=== PATIENT | male | born 1940 | race Caucasian/White ===

== ENCOUNTER 2023-08-06 08:58 | Outpatient (OUT) | payer MEDICARE, BC, SELFPAY ==
--- NOTE | 2023-08-06 | XR_ITS ---
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 FINDINGS: SPINE ANALYSIS: Average bone mineral density is 1.300 g/cm2. T-score (standard deviation relative to young adult mean): 0.7 . +18.7% change since prior study. HIP ANALYSIS: Lowest bone mineral density is within the right femoral neck, 0.733 g/cm2. T-score (standard deviation relative to young adult mean): -2.6 . +6.7% change since prior study. XR/XR DEXA axial skeleton IMPRESSION: [employer] Classification: Osteoporosis - High Fracture Risk FRAX: Cannot be calculated. Electronically authenticated by: JACKIE JOHANSEN Date: 08/06/2023 09:44
== END 2023-08-06 08:59 | disposition home or self-care (01) ==
LOC: RAD 09:05
PROVIDERS: PCP Internal Medicine; Visit Provider Family Medicine
DX: M81.0 Age-related osteoporosis without current pathological fracture (principal)
CPT/HCPCS: 77080

== ENCOUNTER 2023-08-20 12:51 | Outpatient (OUT) | payer MEDICARE, BC, SELFPAY ==
--- NOTE | 2023-08-20 | XR_ITS ---
[facility] [place] [id number] Patient Name: TE QUINN MRN: [id number] date: 1940 Sex: M Assigned Patient Location: RAD Current Patient Location: RAD Accession/Order Number: [id number] Exam Date: 08/20/2023 13:14 Report Date: 08/21/2023 12:01 At the request of: KIMBERLY MIRANDA Procedure: XR hip RT 2V w/ pelvis PROCEDURE: XR hip RT 2V w/ pelvis HISTORY: Low back pain, pain of right hip , right leg pain for 2 1/2 months COMPARISON: None. FINDINGS: BONES:1.6 x 0.6 cm calcification lateral to the greater trochanter of the right femur. Mild degenerative osteoarthritic spurring along superior rim of acetabulum. Minimal joint space narrowing. Unremarkable femoral head. SOFT TISSUES:No visible soft tissue swelling. EFFUSION:None visible. OTHER: Negative. XR/XR hip RT 2V w/ pelvis IMPRESSION: 1. 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 2. Separate ossification anterior-lateral to the greater trochanter; nonspecific but suggestive of heterotopic bone formation or avulsion fracture from remote injury. No comparison studies. Electronically authenticated by: JACKIE JOHANSEN Date: 08/21/2023 12:01
--- NOTE | 2023-08-20 | XR_ITS ---
[facility] [place] [address] Patient Name: TE QUINN MRN: [id number] date: 1940 Sex: M Assigned Patient Location: [facility] Current Patient Location: Accession/Order Number: [id number] Exam Date: 08/20/2023 13:14 Report Date: 08/21/2023 11:51 At the request of: KIMBERLY MIRANDA Procedure: XR lumbar spine 6V w bending EXAMINATION: XR lumbar spine 6V w bending HISTORY: Low back pain, pain of right hip COMPARISON: No relevant comparison available. FINDINGS: BONES: 5 mm retrolisthesis of L4 on L5; stable between neutral, flexion, extension. 7 mm anterior listhesis of L5 on S1; stable between neutral, flexion, extension. L5 pars interarticularis defects suspected bilaterally. Moderate degenerative facet arthropathy L4-5, L5-S1. Slight right convex curvature of lumbar spine. DISC SPACES: Moderate narrowing L5-S1. PARASPINOUS: Atherosclerotic disease of aorta and branches without appreciable aneurysm. OTHER: Negative. XR/XR lumbar spine 6V w bending IMPRESSION: 1. Degenerative facet arthropathy, degenerative disc disease, and listhesis of lower lumbar spine as detailed above. Electronically authenticated by: JACKIE JOHANSEN Date: 08/21/2023 11:51
--- OUTSIDE RECORDS SUMMARY | 2023-08-20 13:09 | XMS_ITS | CCD ---
Author Organization [facility] Care Team Providers Care Pricing Consultant Name Role Phone TIP, DR HARRIS Admitting Unavailable BALL, DR HARRIS Attending Unavailable BALL, DR HARRIS Consulting Unavailable BALL, DR HARRIS Primary Care Unavailable Ziebjen, DR Hull Consulting Unavailable TIP, DR HARRIS Primary Care Unavailable TIP, DR HARRIS Admitting Unavailable TIP, DR HARRIS Attending Unavailable BALL, DR HARRIS Consulting Unavailable Brian, Epifanio Consulting Unavailable ROBERTO, SANYA JORDAN Admitting Unavailable BALL, DR HARRIS Primary Care Unavailable ROBERTO, SANYA JORDAN Attending Unavailable ROBERTO, SANYA JORDAN Consulting Unavailable LESA, DR SASHA Koenig Admitting Unavailable TIP, DR HARRIS Primary Care Unavailable LESA, DR SASHA Koenig Attending Unavailable LESA, DR SASHA Koenig Consulting Unavailable HAY, DR SWAIN Consulting Unavailable FELICIANO, EMELIA Consulting Unavailable BALL, DR HARRIS Admitting Unavailable BALL, DR HARRIS Primary Care Unavailable TIP, DR HARRIS Attending Unavailable BALL, DR HARRIS Consulting Unavailable BALL, DR HARRIS Primary Care Unavailable BALL, DR HARRIS Admitting Unavailable BALL, DR HARRIS Attending Unavailable BALL, DR HARRIS Consulting Unavailable Tip, Micah Unavailable FREDERICK ZAMORA Attending Unavailable Allergies Allergy Classification Reported Allergen(s) Allergy Type Date of Onset Reaction(s) Facility (1 source) Penicillins Drug allergy (disorder) 3 [facility] Repository (4 sources) Vicodin *ANALGESICS - OPIOID* Propensity to adverse reactions Unknown [email or web address] Other (4 sources) Substance with penicillin structure and antibacterial mechanism of action (substance) Drug allergy Unknown [email or web address] Other Medications Current Medications Medication Drug Class(es) Dates Sig (Normalized) Sig (Original) amLODIPine 5 mg oral tablet (4 sources) Dihydropyridine Calcium Channel Reyes Start: 08-07-2022 take 1 tablet by mouth every twenty-four hours amLODIPine Besylate 5 MG 1 tablet Orally Once a day Aug, Active atorvastatin 40 mg oral tablet (6 sources) HMG-CoA Reductase Inhibitor Start: 06-10-2022 take 1 tablet by mouth every twenty-four hours Atorvastatin Calcium 40 MG 1 tablet Orally Once a day Jun, Active Cholecalciferol (4 sources) Vitamin D Start: 08-07-2022 Cholecalciferol 75 MCG (3000 UT) as directed Orally Once a day Aug, Active pantoprazole 40 mg delayed release oral tablet (6 sources) Proton Pump Inhibitor Start: 08-07-2022 take 1 tablet by mouth every twenty-four hours Pantoprazole Sodium 40 MG 1 tablet Orally Once a day Aug, Active Start: 06-10-2022 take 1 tablet by jone th every twenty-four hours Pantoprazole Sodium 40 MG 1 tablet Orally Once a day for 90 days Jun, Active {20 (nirmatrelvir 150 MG Oral Tablet) / 10 (ritonavir 100 MG Oral Tablet) } Pack [Paxlovid 5-Day] (4 sources) Start: 03-11-2022 take 3 tablets by mouth every twelve hours Paxlovid (300/100) 20 x 150 MG & 10 x 100MG 3 tablets Orally Twice a day for 5 day(s) Mar, Active Completed/Discontinued Medications Medication Drug Class(es) Dates Sig (Normalized) Sig (Original) Suprep Bowel Prep . (8 sources) Start: 08-31-2014 Suprep Bowel Prep . as directed Orally 1 for 1 days Aug, Not-Taking/PRN Start: 08-31-2014 Suprep Bowel P rep . as directed Orally 1 for 1 days Aug, Not-Taking Start: 08-31-2014 Suprep Bowel P rep . as directed Orally 1 for 1 days Aug, Active triamcinolone acetonide 40 mg/ml injectable suspension (17 sources) Corticosteroid Start: 03-08-2022 Kenalog-40 Jun, 60 mg Problems Active Problems Problem Classification Problem Date Documented Da te Episodic/Chronic Abdominal pain (8 sources) Epigastric pain; Translations: [Abdominal pain] Onset: 01-13-2021 Episodic Cancer of colon (12 sources) History of malignant neoplasm of colon; Translations: [Personal history of other malignant neoplasm of large intestine] Episodic Chronic obstructive pulmonary disease and bronchiectasis (1 source) Bronchitis, not specified as acute or chronic Episodic Disorders of lipid metabolism (20 sources) Pure hypercholesterolemia , unspecified; Translations: [Hypercholesterolemi a] Onset: 01-15-2021 Chronic Esophageal disorders (2 sources) Gastro-esophageal reflux disease with esophagitis; Translations: [Gastro-esophageal reflux disease with esophagitis, without bleeding] Chronic Essential hypertension (16 sources) Essential (primary) hypertension; Translations: [Essential hypertension] Onset: 01-15-2021 Chronic Gout and other crystal arthropathies (12 sources) Primary gout; 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, left ankle and foot] Onset: 10-31-2014 Resolved: 02-04-2022 Chronic Hyperplasia of prostate (4 sources) Lower urinary tract symptoms due to benign prostatic hypertrophy; Translations: [Benign prostatic hyperplasia with lower urinary tract symptoms] Chronic Neoplasms of unspecified nature or uncertain behavior (4 sources) Neoplasm of uncertain behavior of colon; Translations: [Neoplasm of uncertain behavior of colon] Episodic Nutritional deficiencies (4 sources) Vitamin D deficiency; Translations: [Vitamin D deficiency, unspecified] Chronic Osteoporosis (4 sources) Primary osteoporosis; Translations: [Age-related osteoporosis without current pathological fracture] Chronic Other and unspecified benign neoplasm (8 sources) History of polyp of colon; Translations: [Personal history of colonic polyps] Episodic Other and unspecified benign neoplasm (8 sources) Benign neoplasm of transverse colon; Translations: [Benign neoplasm of transverse colon] Episodic Other connective tissue disease (4 sources) Other symptoms and signs involving the nervous system; Translations: [Other symptoms and signs involving the nervous system] Episodic Other connective tissue disease (2 sources) Disorder of nervous system; Translations: [Other symptoms and signs involving the nervous system] Episodic Other injuries and conditions due to external causes (3 sources) History of fall; Translations: [History of falling] Episodic Other injuries and conditions due to external causes (1 source) History of falling; Translations: [History of falling] Episodic Other non-traumatic joint disorders (4 sources) Pain in left knee; Translations: [PAIN IN LEFT KNEE] Onset: 10-25-2021 Episodic Other nutritional; endocrine; and metabolic disorders (4 sources) Obesity; Translations: [Obesity, unspecified] Chronic Other nutritional; endocrine; and metabolic disorders (4 sources) Simple obesity ; Translations: [Other obesity due to excess calories] Onset: 10-31-2014 Chronic Other nutritional; endocrine; and metabolic disorders (1 source) Body mass index 30+ - obesity; Translations: [Body mass index (BMI) 30.0-30.9, adult] Chronic Other nutritional; endocrine; and metabolic disorders (1 source) Other obesity due to excess calories Chronic Other nutritional; endocrine; and metabolic disorders (1 source) Body mass index (BMI) 30.0-30.9, adult Chronic Other nutritional; endocrine; and metabolic disorders (3 sources) Overweight; Translations: [Overweight] Episodic Other nutritional; endocrine; and metabolic disorders (1 source) Overweight; Translations: [Overweight] Episodic Other screening for suspected conditions (not mental disorders or infectious disease) (1 source) Encounter for screening for malignant neoplasm of prostate Episodic Other upper respiratory disease (8 sources) Seasonal allergy; Translations: [Other seasonal allergic rhinitis] Chronic Other upper respiratory disease (2 sources) Other seasonal allergic rhinitis; Translations: [Other seasonal allergic rhinitis] Onset: [birth year]03-1959 Chronic Other upper respiratory disease (9 sources) Allergic rhinitis due to pollen; Translations: [Allergic rhinitis due to pollen] Resolved: 02-04-2022 Chronic Other upper respiratory disease (1 source) Allergic rhinitis due to pollen Chronic Other upper respiratory disease (8 sources) Allergic rhinitis; Translations: [Allergic rhinitis, unspecified] Chronic Other upper respiratory disease (3 sources) Seasonal allergic rhinitis; Translations: [Other seasonal allergic rhinitis] Onset: 03-03-1959 Chronic Other upper respiratory disease (1 source) Allergic rhinitis, unspecified Chronic Peripheral and visceral atherosclerosis (4 sources) Peripheral vascular disease; Translations: [Peripheral vascular disease, unspecified] Chronic Residual codes; unclassified (4 sources) Obstructive sleep apnea (adult) (pediatric); Translations: [OBSTRUCTIVE SLEEP APNEA] Onset: 10-31-2021 Chronic Residual codes; unclassified (4 sources) Obstructive sleep apnea syndrome; Translations: [Obstructive sleep apnea (adult) (pediatric)] Chronic Residual codes; unclassified (8 sources) H/O: major abdominal surgery; Translations: [Other specified postprocedural states] Episodic Past or Other Problems Problem Classification Problem Date Documented Da te Episodic/Chronic Acute bronchitis (4 sources) Acute bronchitis; Translations: [Acute bronchitis, unspecified] Onset: 08-09-2013 Episodic Allergic reactions (4 sources) Contact dermatitis; Translations: [Unspecified contact dermatitis, unspecified cause] Onset: 05-07-2013 Episodic Conditions associated with dizziness or vertigo (4 sources) Dizziness and giddiness; Translations: [Dizziness and giddiness] Onset: 10-24-2016 Episodic Diabetes mellitus without complication (6 sources) Impaired fasting glycemia; Translations: [Impaired fasting glucose] Onset: 02-04-2022 Episodic Esophageal disorders (4 sources) Esophageal disorders; Translations: [Gastro-esophageal reflux disease with esophagitis, without bleeding] Immunizations and screening for infectious disease (8 sources) Encounter for immunization; Translations: [Vaccination given] Onset: 12-02-2013 Episodic Inflammatory conditions of male genital organs (4 sources) Orchitis and epididymitis; Translations: [Epididymo-orchitis ] Resolved: 10-05-2019 Episodic Mycoses (4 sources) Tinea cruris; Translations: [Tinea cruris] Onset: 09-28-2018 Episodic Other aftercare (1 source) [facility] (current) use of aspirin; Translations: [DETENTION CURRENT USE OF ASPIRIN] Onset: 01-15-2021 Episodic Other aftercare (1 source) Other skilled nursing (current) drug therapy; Translations: [OTH SALES REPRESENTATIVE CASH REGISTERS CURRENT DRUG THERAPY] Onset: 01-15-2021 Episodic Other connective tissue disease (3 sources) Disorder of soft tissue; Translations: [Other specified soft tissue disorders] Onset: 08-23-2013 Episodic Other connective tissue disease (1 source) Other specified soft tissue disorders; Translations: [Other specified soft tissue disorders] Onset: 08-23-2013 Episodic Other lower respiratory disease (3 sources) Dyspnea; Translations: [Other forms of dyspnea] Onset: 10-24-2016 Episodic Other lower respiratory disease (1 source) Other forms of dyspnea; Translations: [Other forms of dyspnea] Onset: 10-24-2016 Episodic Other nervous system disorders (1 source) Paresthesia of skin; Translations: [PARESTHESIA OF SKIN] Onset: 01-15-2021 Episodic Other non-traumatic joint disorders (4 sources) Arthralgia of the lower leg; Translations: [Pain in left knee] Resolved: 02-04-2022 Episodic Other skin disorders (4 sources) Actinic keratosis; Translations: [Actinic keratosis] Onset: 07-10-2016 Episodic Residual codes; unclassified (3 sources) H/O: risk factor; Translations: [Other specified personal history presenting hazards to health] Onset: 10-24-2016 Episodic Residual codes; unclassified (1 source) Other specified personal history presenting hazards to health; Translations: [Other specified personal history presenting hazards to health] Onset: 10-24-2016 Episodic Screening and history of mental health and substance abuse codes (1 source) Encounter for screening for depression; Translations: [Encounter for screening for depression] Onset: 10-03-2021 Episodic Sprains and strains (4 sources) Low back strain; Translations: [Strain of muscle, fascia and tendon of lower back, initial encounter] Onset: 09-28-2018 Episodic Superficial injury; contusion (12 sources) Contusion of lower back and pelvis, initial encounter; Translations: [Contusion of lower back] Onset: 02-07-2021 Resolved: 02-04-2022 Episodic Viral infection (1 source) COVID-19 Results Test Name Value Interpretation Reference Range Facil ity XR KNEE LT 3Von 10-25-2021 XR KNEE LT 3V EXAM: Left knee HISTORY: Left knee pain COMPARISON: None. TECHNIQUE: 3 views FINDINGS: No fracture or dislocation of the left knee is noted. Joint spaces well-maintained. Surrounding soft tissues are unremarkable. Vascular calcifications are noted in the soft tissues posteriorly. IMPRESSION: No acute bony antimony of the left knee. Electronically authenticated by: EPIFANIO KINSEY Date: 2021-10-25 14:57 Normal [facility] XR LSPINE 2_3 VIEWSon 2020 XR LSPINE 2_3 VIEWS EXAMINATION: XR LSPINE 2_3 VIEWS HISTORY: Contusion of lower back ; acute lumbar pain after falling COMPARISON: No relevant comparison available. FINDINGS: BONES: Mild grade 1 anterior listhesis of L5 in relation to L4 and S1. Moderate degenerative facet arthropathy L4-5. No fracture. DISC SPACES: Mild narrowing L5-S1. PARASPINOUS: Atherosclerotic disease of aorta without visible aneurysm. OTHER: Negative. IMPRESSION: 1. Mild-moderate degenerative changes of the lower lumbar spine. No appreciable acute abnormality. Electronically authenticated by: JACKIE JOHANSEN Date: 2021-02-07 12:13 Normal [facility] Kevin 01-30-2021 L - -------- Specimen: [id number] Received: 01/30/21 Status: MILTON Mike Num: [id number] Spec Type: Surgical Subm Dr: Rich Saavedra MD Tissues: A Colon - Polyp (RECTUM) Procedures: HE Stain/4, Gross/Micro L4 -------- Patient Age/Sex Location Account Attending Physician -------- Junito Hale 80/M [id number] Rcih Saavedra MD -------- SPEC NUM: [id number] RECD: 01/30/21 STATUS: MILTON MIKE NUM: [id number] REBECCA: 01/30/21- [facility] DR: Rich Saavedra MD ENTERED: 01/30/21 FLORENCIO PENNINGTON: SPEC TYPE: Surgical DEPT: S ORDERED: HE Stain/4, Gross/Micro L4 ORDERED: HE Stain/4, Gross/Micro L4 Pathological Diagnosis Rectal polyp, polypectomy: - Minute fragment of colonic mucosa with lymphoid aggregate, no dysplasia identified. Clinical Information History of colon cancer Gross Description Received in formalin labeled with the patient's name, number and polyp is a possible 0.4 cm thompson to pink tissue fragment admixed with a marked amount of yellow brown vegetable material. Entirely submitted in two cassettes labeled A1-A2. Type of Fixative: 10% Neutral Buffered Formalin (LANETTE/ARIANNA) Microscopic Description Four glass slides with H E stained material have been examined. The microscopic findings support the above pathologic diagnosis. CPT Codes 43913 -------- -------- Specimen: [id number] Received: 01/30/21 Status: MILTON Mckeon Num: [id number] Spec Type: Surgical Subm Dr: Rich Saavedra MD Tissues: A Colon - Polyp (RECTUM) Procedures: HE Stain/4, Gross/Micro L4 -------- Patient: AlexiaJunito Dereck [id number] (Continued) -------- Signed (signature on file) Ria Barahona MD 01/31/21 1317 [facility] COVID-19 Antigenon COVID-19 Antigen Healthcare Worker?: N Will Reference Will Reference Negative SARS-CoV+SARS-CoV-2 (COVID-19) Ag [Presence] in Respiratory specimen by Rapid immunoassay Negative for SARS Antigen by JOANNA COVID19 Blank Space Will Disclaimer Negative results, from patients with symptom Will Disclaimer onset beyond five days, should be treated as Will Disclaimer presumptive and confirmation with a molecular Will Disclaimer assay, if necessary, for patient management, Will Disclaimer may be performed. Negative results do not rule Will Disclaimer out COVID-19 and should not be used as the sole Will Disclaimer basis for treatment or patient management Will Disclaimer decisions, including infection control decisions. Will Disclaimer Negative results should be considered in the Will Disclaimer context of a patient's recent exposures, history Will Disclaimer and the presence of clinical signs and symptoms Will Disclaimer consistent with COVID-19. COVID19 Blank Space Will Disclaimer The Will SARS Antigen JOANNA does not differentiate Will Disclaimer between SARS-CoV and SARS-CoV-2. COVID19 Blank Space Will Disclaimer This test was developed and its performance Will Disclaimer characteristic determined by [employer] and Will Disclaimer validated at [facility]. This Will Disclaimer test has not been FDA cleared or approved. This Will Disclaimer test has been authorized by FDA under an Emergency Use Will Disclaimer Authorization (EUA). This test has been validated Will Disclaimer in accordance with the FDA's Guidance Document (Policy Will Disclaimer for Diagnostics Testing in Laboratories Certified to Will Disclaimer Perform High Complexity Testing under CLIA prior to Will Disclaimer Emergency Use Authorization for Coronavirus Will Disclaimer iseas during the Public Health Emergency) Will Disclaimer issued on June 03, 2019. This test is only authorized Will Disclaimer for the duration of time the declaration that Will Disclaimer circumstances exist justifying the authorization of Will Disclaimer the emergency use of in vitro diagnostic tests for Will Disclaimer detection of SARS-CoV-2 virus and/or diagnosis of Will Disclaimer COVID-19 infection under section 564(b)(1) of the Will Disclaimer Act, 21 U.S.C. 360bbb-3(b)(1), unless the Will Disclaimer authorization is terminated or revoked sooner. PERFORMED BY: [place] [id number] PATHOLOGIST [employer]HEMAT[employer] MEMBER NAN SEAY M.D. Normal [facility] Comment on above: Performed By: #### C OVID-19 WILL, SOFIANEG #### [address] Will Ag Negativeon 01-27-20 Will Ag Negative Negative Normal Negative [facility] Comment on above: Result Comment: This is a duplicate Will SARS Antigen (JOANNA) result to be used for statistical tracking purpose only. PERFORMED BY: [place] [address] PATHOLOGIST [employer]HE[employer]AC[employer] MEMBER NAN SEAY M.D. Performed By: #### C OVID-19 REBEKA SOLISEG #### [facility] [address] CARDIAC SASHA ADMITon 021 CK [Catalytic activity/Vol] 149 U/L Normal 55-170 [facility] Comment on above: Performed By: #### B CHYNA, CESAR #### [facility] [address] [place] [address] Dr. Dorothea Neff CK.MB [Mass/Vol] 1.33 ng/mL Normal <=2.37 [facility] Comment on above: Performed By: #### Arlette CLEMENTE, CESAR #### [facility] [address] [place] [address] Dr. Dorothea Neff HSTROP 10.6 pg/mL Normal 4.0-42.2 [facility] Comment on above: Result Comment: CUT- OFF POINTS HAVE BEEN ESTABLISHED BASED ON THE FOURTH UNIVERSAL DEFINITIONS OF MYOCARDIAL INFARCTION. THE UPPER REFERENCE LIMIT (URL) OF TROPONIN, DEFINED THE 99TH PERCENTILE OF cTnI DISTRIBUTION IN A REFERENCE POPULATION, HAS BEEN CONFIRMED THE DECISION THRESHOLD FOR MT DIAGNOSIS. Performed By: #### B CHYNA, CESAR #### [facility] [address] [place] [address] Dr. Dorothea Neff EKNYON 62.0 ng/mL Normal <=121.0 [facility] Comment on above: Performed By: #### B CHYNA, ARIELDM #### [facility] [address] [place] [address] Dr. Dorothea Neff CBC W MANUAL DIFFon 01-14-20 21 ATYPICAL LYMPH # Normal [facility] Comment on above: Performed By: #### C JEWEL #### [facility] [address] [place] [address] Dr. Dorothea Neff ATYPICAL LYMPH % Normal [facility] Comment on above: Performed By: #### Yg HOLLOWAY #### [facility] [address] [place] [address] Dr. Dorothea Neff BAND # Normal 0.0-0.3 [facility] Comment on above: Performed By: #### C BCMAN #### [facility] [address] [place] [address] Dr. Dorothea Neff BAND % Normal 0-5 [facility] Comment on above: Performed By: #### C BCMAN #### [facility] [address] [place] [address] Dr. Dorothea Neff BASOM # 0.00 103/ul Normal 0.00-0.10 [facility] Comment on above: Performed By: #### C BCJURGEN #### [facility] [address] [place] [address] Dr. Dorothea Neff BASOM % 0.0 % Critically low 0.2-2.0 [facility] Comment on above: Performed By: #### C JEWEL #### [facility] [address] [place] [address] Dr. Dorothea Neff BLAST # Normal [facility] Comment on above: Performed By: #### C JEWEL #### [facility] [address] [place] [address] Dr. Dorothea Neff BLAST % Normal [facility] Comment on above: Performed By: #### C JEWEL #### [facility] [address] [place] [address] Dr. Dorothea Neff CORRECTED WBC Normal 4.0-11.0 [facility] Comment on above: Performed By: #### C BCJURGEN #### [facility] [address] [place] [address] Dr. Dorothea Neff EOS # 0.00 103/ul Normal 0.00-0.70 [facility] Comment on above: Performed By: #### C BCJURGEN #### [facility] [address] [place] [address] Dr. Dorothea Neff EOS% 0.0 % Critically low 0.9-7.0 [facility] Comment on above: Performed By: #### C JEWEL #### [facility] [address] [place] [address] Dr. Dorothea Neff HCT 46.4 % Normal 42.0-54.0 [facility] Comment on above: Performed By: #### C JEWEL #### [facility] [address] [place] [address] Dr. Dorothea Neff HGB 15.5 g/dl Normal 14.0-18.0 [facility] Comment on above: Performed By: #### C JEWEL #### [facility] [address] [place] [address] Dr. Dorothea Neff LYMPHM # 4.45 103/ul Critically high 1.20-3.80 [facility] Comment on above: Performed By: #### C JEWEL #### [facility] [address] [place] [address] Dr. Dorothea Neff LYMPHM% 25.0 % Normal 20.5-60.0 [facility] Comment on above: Performed By: #### C JEWEL #### [facility] [address] [place] [address] Dr. Dorothea Neff MCH 31.6 pg Normal 25.9-34.0 [facility] Comment on above: Performed By: #### C JEWEL #### [facility] [address] [place] [address] Dr. Dorothea Neff MCHC 33.4 g/dl Normal 29.9-35.2 [facility] Comment on above: Performed By: #### C JEWEL #### [facility] [address] [place] [address] Dr. Dorothea Neff MCV 94.7 fL Critically high 80.0-94.0 [facility] Comment on above: Performed By: #### C BCJURGEN #### [facility] [address] [place] [address] Dr. Dorothea Neff METAMYELOCYTE # Normal [facility] Comment on above: Performed By: #### C BCJURGEN #### [facility] [address] [place] [address] Dr. Dorothea Neff METAMYELOCYTE % Normal [facility] Comment on above: Performed By: #### C BCJURGEN #### [facility] [address] [address] [address] Dorothea Neff MONOM# 1.42 103/ul Critically high 0.30-0.80 [facility] Comment on above: Performed By: #### C JEWEL #### [facility] [address] [place] [address] Dr. Dorothea Neff MONOM% 8.0 % Normal 1.7-12.0 [facility] Comment on above: Performed By: #### C JEWEL #### [facility] [address] [place] [address] Dr. Dorothea Neff MPV 11.1 fL Normal 9.5-13.5 [facility] Comment on above: Performed By: #### C JEWEL #### [facility] [address] [place] [address] Dr. Dorothea Neff MYELOCYTE # Normal [facility] Comment on above: Performed By: #### C JEWEL #### [facility] [address] [place] [address] Dr. Dorothea Neff MYELOCYTE % Normal [facility] Comment on above: Performed By: #### C JEWEL #### [facility] [address] [place] [address] Dr. Dorothea Neff NRBC Normal [facility] Comment on above: Performed By: #### C JEWEL #### [facility] [address] [place] [address] Dr. Dorothea Neff PLT 220 103/ul Normal 150-450 [facility] Comment on above: Performed By: #### C JEWEL #### [facility] [address] [place] [address] Dr. Dorothea Neff RBC 4.90 106/ul Normal 4.70-6.10 [facility] Comment on above: Performed By: #### C JEWEL #### [facility] [address] [place] [address] Dr. Dorothea Neff RDW 12.7 % Normal 11.0-15.0 [facility] Comment on above: Performed By: #### C JEWEL #### [facility] [address] [place] [address] Dr. Dorothea Neff SEG # 11.93 103/ul Critically high 1.40-6.50 [facility] Comment on above: Performed By: #### C JEWEL #### [facility] [address] [place] [address] Dr. Dorothea Neff SEG % 67.0 % Normal 43.0-75.0 [facility] Comment on above: Performed By: #### C JEWEL #### [facility] [address] [address] [address] Dorothea Neff WBC 17.8 103/ul Critically high 4.0-11.0 [facility] Comment on above: Performed By: #### C JEWEL #### [facility] [address] [place] [address] Dr. Dorothea Neff PROF CHEM 8 (BAS METB)on Anion gap [Moles/Vol] 14.8 mmol/L Normal [facility] Comment on above: Performed By: #### B CESAR CLEMENTE #### [facility] [address] [place] [address] Dr. Dorothea Neff Calcium [Mass/Vol] 9.1 mg/dL Normal 8.4-10.2 [facility] Comment on above: Performed By: #### CESAR Chong MP #### [facility] [address] [place] [address] Dr. Dorothea Neff Chloride [Moles/Vol] 105 mmol/L Normal 98-107 [facility] Comment on above: Performed By: #### B CESAR CLEMENTE #### [facility] [address] [place] [address] Dr. Dorothea Neff CO2 [Moles/Vol] 28.6 mmol/L Normal 22.0-30.0 [facility] Comment on above: Performed By: #### CESAR Chong MP #### [facility] [address] [place] [address] Dr. Dorothea Neff Creatinine [Mass/Vol] 1.05 mg/dL Normal 0.66-1.25 [facility] Comment on above: Performed By: #### B CESAR CLEMENTE #### [facility] [address] [address] [address] Dorothea Neff EGFR-AF CZECH >60 Normal >=60 [facility] Comment on above: Performed By: #### B CHYNA, CMADM #### [facility] [address] [address] [address] Dorothea Neff EGFR-NON AF CZECH >60 Normal >=60 [facility] Comment on above: Performed By: #### B CHYNA, CESAR #### [facility] [address] [address] [address] Dorothea Neff Glucose [Mass/Vol] 114 mg/dL Critically high 74-106 [facility] Comment on above: Performed By: #### B CHYNA, ARIELDM #### [facility] [address] [address] [address] Dorothea Neff Potassium [Moles/Vol] 4.4 mmol/L Normal 3.4-5.0 [facility] Comment on above: Performed By: #### B CHYNA, ARIELDM #### [facility] [address] [address] [address] Dorothea Neff Sodium [Moles/Vol] 144 mmol/L Normal 137-145 [facility] Comment on above: Performed By: #### B CHYNA, ARIELDM #### [facility] [address] [address] [address] Dorothea Neff Urea nitrogen [Mass/Vol] 17.0 mg/dL Normal 9.0-20.0 [facility] Comment on above: Performed By: #### B CHYNA, CMADM #### [facility] [address] [address] [address] Dorothea Neff Urea nitrogen/Creatinine [Mass ratio] 16.2 mg/mg Normal [facility] Comment on above: Performed By: #### B CHYNA, ARIELDM #### [facility] [address] [address] [address] Dorothea Neff URIC ACID SERUMon 01-13-2021 Urate [Mass/Vol] 7.5 mg/dL Normal 3.5-8.5 [facility] Comment on above: Performed By: #### U CULLEN #### [facility] [address] [address] [address] Dorothea Neff XR CHEST 1 Von 01-13-2021 XR CHEST 1 V XR CHEST 1 V 01/13/2021 5:50 AM EST Indication: CHEST PAIN, UNSPECIFIED Technique: Portable AP radiograph of the chest was obtained. Comparison: None. Findings: The lungs are adequately inflated. No acute rib fractures, pneumothorax or mediastinal shift. No consolidation, edema, or effusion. Heart is normal in size and contour. Impression: No acute findings. Electronically authenticated by: EMELIA WIGGINS Date: 2021-01-13 06:24 Normal [facility] Vital Signs Date Time Vital Sign Value Performing Clinician Facility 04-14-2023 09:00-0500 Body height 171.45 cm Micah Ball Other [email or web address] Other 04-14-2023 09:00-0500 Body mass index (BMI) [Ratio] 30.92 kg/m2 Micah Ball Other [email or web address] Other 04-14-2023 09:00-0500 Body weight 90.9 kg Micah Ball Other [email or web address] Other 04-14-2023 09:00-0500 Diastolic blood pressure 67 mm[Hg] Micah Ball Other [email or web address] Other 04-14-2023 09:00-0500 Respiratory rate 12 /min Micah Ball Other [email or web address] Other 04-14-2023 09:00-0500 Systolic blood pressure 135 mm[Hg] Micah Ball Other [email or web address] Other 10-11-2022 09:00-0400 Body height 171.45 cm Micah Ball Other [email or web address] Other 10-11-2022 09:00-0400 Body mass index (BMI) [Ratio] 31.04 kg/m2 Micah Whelan Other [email or web address] Other 10-11-2022 09:00-0400 Body weight 91.26 kg Micah Whelan Other [email or web address] Other 10-11-2022 09:00-0400 Diastolic blood pressure 87 mm[Hg] Micah Whelan Other [email or web address] Other 10-11-2022 09:00-0400 Respiratory rate 12 /min Micah Whelan Other [email or web address] Other 10-11-2022 09:00-0400 Systolic blood pressure 161 mm[Hg] Micah Whelan Other [email or web address] Other Encounters Encounter Date Encounter Type Care Provider Facility Start: 04-14-2023 End: 04-14-2023 ambulatory Micah Whelan Other [email or web address] Other Start: 04-14-2023 Office outpatient vi sit 25 minutes Micah Whelan [facility] Start: 03-10-2023 End: 03-10-2023 ambulatory FREDERICK ZAMORA Not Available Start: 02-20-2023 End: 02-20-2023 ambulatory Micah Whelan Other [email or web address] Other Start: 02-20-2023 Telephone encounter Micah Ball [facility] Start: 02-05-2023 End: 02-05-2023 ambulatory FREDERICK S ZAMORA Not Available Start: 01-31-2023 End: 01-31-2023 ambulatory Micah Ball Other [email or web address] Other Start: 01-31-2023 Telephone encounter Micah Ball [facility] Start: 10-11-2022 End: 10-11-2022 ambulatory Micah Ball Other [email or web address] Other Start: 10-11-2022 Patient encounter procedure Micah Ball [facility] Start: 06-27-2022 End: 06-27-2022 ambulatory Micah Whelan Other [email or web address] Other Start: 06-27-2022 Nursing evaluation o f patient and report Micah Whelan [facility] Start: 06-10-2022 End: 06-10-2022 ambulatory Micah Whelan Other [email or web address] Other Start: 06-10-2022 Telephone encounter Micah Whelan [facility] Start: 03-11-2022 ([facility]) [facility] Scheduled Micah Whelan [facility] Start: 03-11-2022 End: 03-11-2022 ambulatory Micah Whelan Other [email or web address] Other Start: 03-08-2022 End: 03-08-2022 ambulatory Micah Whelan Other [email or web address] Other Start: 03-08-2022 Nursing evaluation o f patient and report Micah Tip [facility] Start: 10-31-2021 End: 11-01-[address] MICAH WHELAN Facility:[facility] Start: 10-25-2021 End: 10-26-[address] MICAH WHELAN Facility:[facility] Start: 10-09-2021 End: 10-10-[address] MICAH WHELAN Facility:[facility] Start: 10-03-2021 Adult health examination Micah Whelan Other [email or web address] Other Start: 02-07-2021 End: 02-08-[address] MICAH WHELAN Facility:[facility] Start: 01-13-2021 End: 01-13-[address] SASHA MCFADDEN Facility:[facility] Start: 11-28-2020 End: 11-28-2020 ambulatory SANYA MEJIA Facility:[facility] Procedures Date Procedure Procedure Detail Performing Clinician Start: 10-03-2021 Depression screening Be marjorie Whelan Other Immunizations Immunization Date Immunization Notes Care Provider Fa ami 11-30-2021 COVID-19 Vaccine Pfi zer - Documentation Purposes Only Micah Whelan Other [email or web address] Other 11-30-2021 influenza virus vaccine, split virus (incl. purified surface antigen) Micah Whelan Other [email or web address] Other 06-05-2021 COVID-19 Vaccine Pfi zer - Documentation Purposes Only Micah Whelan Other [email or web address] Other 04-14-2020 COVID-19 Vaccine Pfi zer - Documentation Purposes Only Micah Whelan Other [email or web address] Other 12-09-2019 influenza virus vaccine, split virus (incl. purified surface antigen) Micah Whelan Other [email or web address] Other 12-20-2016 influenza virus vaccine, split virus (incl. purified surface antigen) Micah Whelan Other [email or web address] Other 12-25-2015 pneumococcal conjuga te vaccine, 13 valent Micah Whelan Other [email or web address] Other 12-19-2015 influenza virus vaccine, split virus (incl. purified surface antigen) Micah Whelan Other [email or web address] Other 12-22-2013 pneumococcal polysaccharide vaccine, 23 valent Micah Whelan Other [email or web address] Other 12-02-2013 tetanus and diphther ia toxoids, adsorbed, preservative free, for adult use (5 Lf of tetanus toxoid and 2 Lf of diphtheria toxoid) Micah Whelan Other [email or web address] Other 11-05-2011 tetanus and diphther ia toxoids, adsorbed, preservative free, for adult use (5 Lf of tetanus toxoid and 2 Lf of diphtheria toxoid) Micah Whelan Other [email or web address] Other Payers Date Payer Category Payer Medicare [id number] 1959 Unknown [id number] 1957 Unknown [id number] 1940 Unknown [id number] 2.16.84 [id number] 1940 Unknown [id number] 2.16.84 [id number] 1942 Unknown [id number] 2.16.84 [id number] 1942 Unknown [id number] 2.16.84 [id number] 1942 Unknown [id number] 2.16.84 [id number] 1942 Unknown [id number] 2.16.84 [id number] 1942 Unknown [id number] 2.16.84 [id number] 1942 Unknown [id number] 2.16.840 .[id number] Social History Date Type Detail Facility Sex Assigned At [email or web address] Other Evaluation note 04-14-2023 Note Date & Type Note Facility 04-14-2023 Evaluation note Encounter Date Diagnosis Assessment Notes Apr, Primary hypertension (ICD-10 - I10) This patient is instructed to consume a healthy, low-fat, low-salt diet. They are also encouraged to continue exercise to achieve/maintain a normal BMI. Apr, Gastro-esophage al reflux disease with esophagitis, without bleeding (ICD-10 - K21.00) Avoid lying flat after eating. Avoid eating 2 hours prior to bedtime. Smaller, frequent meals may be better tolerated.Weight loss if overweight.PPI with any heartburn.Monitor for dysphagia. Apr, Elevated cholesterol (ICD-10 - E78.00) Instructed on diet and exercise with continued statin therapy.Discussed the beneficial effects of lowering cholesterol in reducing the risk for cerebrovascular and cardiovascular disease. Apr, Suspected sleep apnea (ICD-10 - R29.818) STOP BANG 7 - refuses sleep study Apr, Other obesity due to excess calories (ICD-10 - E66.09) This patient has been instructed on a low-fat, high-fiber diet. They are instructed to reduce calories, portion sizes and snacks. It is recommended that they exercise for 30 minutes, 3-5 times weekly. Apr, Body mass index [BMI] 30.0-30.9, adult (ICD-10 - Z68.30) Jan, Impaired fasting glucose (ICD-10 - R73.01) Instructed on a healthy diet and exercise. Discussed correlation of obesity and insulin resistance. Instructed on weight loss [email or web address] Other Evaluation note 10-11-2022 Note Date & Type Note Facility 10-11-2022 Evaluation note Encounter Date Diagnosis Assessment Notes Oct, Primary hypertension (ICD-10 - I10) This patient is instructed to consume a healthy, low-fat, low-salt diet. They are also encouraged to continue exercise to achieve/maintain a normal BMI. Oct, Gastro-esophage al reflux disease with esophagitis, without bleeding (ICD-10 - K21.00) Diet instructions: Smaller portions, avoid eating and laying flat, avoid eating or drinking prior to bedtime. Weight loss. Oct, Elevated cholesterol (ICD-10 - E78.00) Instructed on diet and exercise with continued statin therapy.Discussed the beneficial effects of lowering cholesterol in reducing the risk for cerebrovascular and cardiovascular disease. Oct, Allergic rhinitis, unspecified seasonality, unspecified trigger (ICD-10 - J30.9) Oct, Medicare annual wellness visit, subsequent (ICD-10 - Z00.00) Personalized health advice was given to the beneficiary including a written plan for screenings discussed and provided. Advanced care planning reviewed and/or information given as requested. Additional counseling was provided here today in regards to, [ ]. The above visit was performed by [ ], under direct supervision of [ ]. Document reviewed and amended by provider signed below. Oct, Suspected sleep apnea (ICD-10 - R29.818) Oct, Screening PSA (prostate specific antigen) (ICD-10 - Z12.5) [facility] Symptoms tolerable Jan, Impaired fasting glucose (ICD-10 - R73.01) This patient is following a comprehensive diabetic treatment plan. They are checking their feet daily for calluses and nonhealing ulcers. They are being seen for yearly dilated eye examinations. Goals: SBP less than 130, LDL less than 100, FBS less than 140, AC and A1C less than 7%. They are checking their BS daily, will which are reviewed at the office visit. Continue regular routine monitoring of A1C,] Microalbumin, Dilated eye exam and Foot exam [email or web address] Other Evaluation note 06-27-2022 Note Date & Type Note Facility 06-27-2022 Evaluation note Encounter Date Diagnosis Assessment Notes Jun, Seasonal allergic rhinitis due to pollen (ICD-10 - J30.1) [email or web address] Other Evaluation note 03-11-2022 Note Date & Type Note Facility 03-11-2022 Evaluation note Encounter Date Diagnosis Assessment Notes Mar, COVID-19 (ICD-10 - U07.1) Begin Paxlovid. Self isolate at home. - Cannot work - avoid contact with others - avoid pets - wipe counters, door knobs if touched - if can't avoid leaving home, must wear mask to protect others - need to stay isolated for 10 days from onset of symptoms or contact with COVID positive individual - to discontinue isolation must be 10 days AND must be without fever for 24 hours AND symptoms must be improving. Always wear a mask in public places. Mar, Bronchitis, not specified as acute or chronic (ICD-10 - J40) Instructed to use Robitussin or Mucinex for cough, saline or Flonase NS for congestion, Tylenol for pain and fever. Mar, Primary hypertension (ICD-10 - I10) Decrease Amlodipine to 1/2 daily while taking Paxlovid Mar, Elevated cholesterol (ICD-10 - E78.00) Hold Atorvastatin while taking Paxlovid [email or web address] Other Evaluation note 03-08-2022 Note Date & Type Note Facility 03-08-2022 Evaluation note Encounter Date Diagnosis Assessment Notes Mar, Seasonal allergies (ICD-10 - J30.2) [facility] Other Evaluation note Note Date & Type Note Facility Evaluation note No Information [facility] Other History general Narrative - Reported Note Date & Type Note Facility History general Narrative - Reported Type Medical History IFG (impaired fasting glucose) Medical History Osteoporosis Medical History Obstructive sleep apnea Medical History Polyp of colon, villous adenoma Medical History Benign prostatic hyp erplasia with lower urinary tract symptoms Medical History History of colon cancer Medical History Gastroesophageal ref lux disease with esophagitis without hemorrhage Medical History PAD (peripheral artery disease) Medical History Essential (primary) hypertension Medical History Hyperlipidemia type II Surgical History BOWEL RESCETION Surgical History ORIF LEFT RADIUS Surgical History UMBILICAL HERNIA REPAIR Surgical History [facility] Surgical History COLONOSCOPY Surgical History B/L INGUINAL HERNIA REPAIR Hospitalization History SEE SURGICAL [email or web address] Other History general Narrative - Reported Note Date & Type Note Facility History general Narrative - Reported Type Medical History IFG (impaired fasting glucose) Medical History Osteoporosis Medical History Obstructive sleep apnea Medical History Polyp of colon, villous adenoma Medical History Benign prostatic hyp erplasia with lower urinary tract symptoms Medical History History of colon cancer Medical History Gastroesophageal ref lux disease with esophagitis without hemorrhage Medical History PAD (peripheral artery disease) Medical History Essential (primary) hypertension Medical History Hyperlipidemia type II Surgical History BOWEL RESCETION Surgical History ORIF LEFT RADIUS Surgical History UMBILICAL HERNIA REPAIR Surgical History [facility] Surgical History COLONOSCOPY Surgical History B/L INGUINAL HERNIA REPAIR Surgical History Colonoscopy w/ polyp ectomy (polypectomy) 2020 Hospitalization History SEE SURGICAL HX [email or web address] Other Summary Purpose Family History No Family History Records FoundNo Family History Records FoundNo Family History Records Found Advance Directives No Advanced Directives Records FoundNo Advanced Directives Records FoundNo Advanced Directives Records Found Additional Source Comments (unrecognized sect ion and content) No Status Records FoundNo Status Records FoundNo Status Records Found INFORMATION SOURCE (unrecogn ized section and content) DATE CREATED AUTHOR 03/28/2021 [facility] DATE CREATED AUTHOR AUTHOR'S ORGANIZ ATION 11/01/2021 [facility] DATE CREATED AUTHOR AUTHOR'S ORGANIZ ATION 03/11/2023 [facility] EPIC REASON FOR VISIT (unrecogniz ed section and content) Allergy ShotCOVID POSITIVERE FILLAllergy ShotWellness, wants allergy shotLab resultsNo Information6 month Follow up FOR RECORDS PERTAINING TO PATIENTS WHO ARE OR HAVE BEEN ENROLLED IN A CHEMICAL DEPENDENCY/SUBSTANCEABUSE PROGRAM, SOME INFORMATION MAY BE OMITTED. This clinical summary was aggregated from multiple sources. Caution should be exercised in using it in the provision of clinical care. This summary normalizes information from multiple sources, and as a consequence, information in this document may materially change the coding, format and clinical context of patient data. In addition, data may be omitted in some cases. CLINICAL DECISIONS SHOULD BE BASED ON THE PRIMARY CLINICAL RECORDS. [email or web address] provides no warranty or guarantee of the accuracy or completeness of information in this document.
== END 2023-08-20 12:52 | disposition home or self-care (01) ==
LOC: RAD 12:51
PROVIDERS: PCP Internal Medicine; Visit Provider Internal Medicine
DX: M54.50 Low back pain, unspecified (principal); M25.551 Pain in right hip
CPT/HCPCS: 72114; 73502

== ENCOUNTER 2023-08-27 12:44 | Outpatient (RCR) | payer MEDICARE, BC, SELFPAY | END 2023-09-10 16:35 | disposition home or self-care (01) | LOC: PT 12:44 | PROVIDERS: PCP Internal Medicine; Visit Provider Internal Medicine | DX: M54.50 Low back pain, unspecified (principal); M25.559 Pain in unspecified hip; M19.90 Unspecified osteoarthritis, unspecified site; R26.89 Other abnormalities of gait and mobility; R26.9 Unspecified abnormalities of gait and mobility; R29.3 Abnormal posture | CPT/HCPCS: 97110; 97161 ==

== ENCOUNTER 2023-09-01 13:04 | Outpatient (OUT) | payer MEDICARE, BC, SELFPAY ==
--- NOTE | 2023-09-01 14:37 | P.CN_ITS ---
Consult Note: HPI Data of Consult Patient: new to practice Consult date: 09/01/23 Requesting Physician: Emily Martin MD Primary Care Provider: Micah Whelan, Consult Narrative Reason for consult: low back, bilateral lower extremity pain Narrative: 82yom who presents for evaluation. longstanding low back pain with radiation into bilateral lower extremities. imaging reviewed, which is significant for multilevel degenerative changes and facet arthropathy. continues in a series of provider directed home exercises and completed PT 6 weeks within past 3 months. uses otc meds as needed. denies adverse med side effects. cc:: CC: Emily Martin MD Review of Systems ROS Status of ROS 10 or more systems reviewed and unremark able except as noted in history and below Exam Narrative Exam Narrative: Psych-alert and oriented x 3. Attentive and appropriate, constitutionally normal, displays normal mood and affect per situation. There are no obvious deficits in memory, reasoning, or intellect.? Skin-no obvious rashes, bruising, erythema noted to the patient's area of pain.? Extremities- extremities are warm with minimal edema and palpable pulses. Lumbar-tenderness to palpation noted in the lumbar spine and paraspinal musculature. Pain is elicited with flexion, extension, and lateral rotation of the lumbar spine. Range of motion is diminished with these motions. Facet loading maneuvers are positive.? Strength-noted to be unremarkable with the exception of decreased strength rated at 4 out of 5 in bilateral quadriceps femoris, anterior tibialis. Sensory-no notable sensory deficits in the bilateral lower extremities to touch or pinprick in all dermatomal distributions with the exception to decreased sensation to the bilateral L4, 5 dermatomal distribution Coordination remains intact.? Gait remains non-antalgic. Assessment and Plan Assessment and Plan (1) Lumbar stenosis with neurogenic claudication: Plan 82yom who presents for evaluation. failed conservative measures, as noted. imaging reviewed, as noted. given symptoms and xr findings, would like to obtain lumbar mri without contrast for further info. he is in agreement. meds reviewed, no changes. follow up after imaging.
== END 2023-09-01 13:05 | disposition home or self-care (01) ==
LOC: PM 13:05
PROVIDERS: PCP Internal Medicine; Visit Provider Anesthesiology
DX: M48.062 Spinal stenosis, lumbar region with neurogenic claudication (principal)
CPT/HCPCS: G0463

== ENCOUNTER 2023-09-10 07:30 | Outpatient (OUT) | payer MEDICARE, BC, SELFPAY ==
--- NOTE | 2023-09-10 07:34 | MR_ITS ---
[place] [id number] Patient Name: TE QUINN MRN: [id number] date: 1940 Sex: M Assigned Patient Location: MRI Current Patient Location: MRI Accession/Order Number: [id number] Exam Date: 09/10/2023 07:51 Report Date: 09/10/2023 11:20 At the request of: RIVERA GIEDRANOAH Procedure: MR lumbar spine wo con EXAMINATION: MR lumbar spine wo con HISTORY: lumbar stenosis COMPARISON: No relevant comparison available. TECHNIQUE: A variety of imaging planes and parameters were utilized for visualization of suspected pathology. FINDINGS: For the purposes of numbering, sagittal T2 image # 8 extends from the T11 vertebral body superiorly to the S3 level inferiorly. PARASPINAL AREA: Normal with no visible mass. BONES: 6 mm anterolisthesis of L5 on S1 with suspected pars interarticularis fractures. CORD/CAUDA EQUINA: Normal caliber, contour, and signal intensity. DISC LEVELS: 12-L1: No significant disc/facet abnormality, spinal stenosis, or foraminal stenosis. L1-L2: No significant disc/facet abnormality, spinal stenosis, or foraminal stenosis. L2-L3: Early degenerative disc disease is present without focal protrusion or neural impingement. L3-L4: Early degenerative disc disease is present without focal protrusion or neural impingement. L4-L5: Early degenerative disc disease is present without focal protrusion or neural impingement. L5-S1: 6 mm anterolisthesis of L5 on S1. Suspected bilateral L5 pars interarticularis fractures. No central canal stenosis. Moderate bilateral foraminal stenosis MR/MR lumbar spine wo con IMPRESSION: 6 mm anterolisthesis of L5 on S1 with moderate bilateral foraminal stenosis Electronically authenticated by: EPIFANIO FELIZ Date: 09/10/2023 11:20
== END 2023-09-10 07:31 | disposition home or self-care (01) ==
LOC: MRI 07:30
PROVIDERS: PCP Internal Medicine; Visit Provider Anesthesiology
DX: M48.061 Spinal stenosis, lumbar region without neurogenic claudication (principal)
CPT/HCPCS: 72148

== ENCOUNTER 2023-09-22 13:16 | Outpatient (OUT) | payer MEDICARE, BC, SELFPAY ==
--- OUTSIDE RECORDS SUMMARY | 2023-09-22 13:30 | XMS_ITS | CCD ---
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 Industrial Chemistry Teacher Name Role Phone TIP, DR HARRIS Admitting Unavailable BALL, DR HARRIS Attending Unavailable BALL, DR HARRIS Consulting Unavailable TIP, DR HARRIS Primary Care Unavailable Zitim, DR Hull Consulting Unavailable TIP, DR HARRIS [...] Attending Unavailable BALL, DR HARRIS Consulting Unavailable TIP, DR HARRIS Primary Care Unavailable BALL, DR HARRIS Admitting Unavailable BALL, DR HARRIS Attending Unavailable BALL, DR HARRIS Consulting Unavailable Tip, Micah Unavailable FREDERICK ZAMORA Attending Unavailable Mario NAGY, Emily Recinos Attending Unavailable Allergies Allergy Classification Reported Allergen(s) Allergy Type Date of Onset Reaction(s) Facility (1 source) Penicillins Drug allergy (disorder) 3 [facility] Repository (4 sources) Vicodin *ANALGESICS - OPIOID* Propensity to adverse reactions Unknown [facility] Other (4 sources) Substance with penicillin structure and antibacterial mechanism of action (substance) Drug allergy Unknown [facility] Other Medications Current Medications Medication Drug Class(es) [...] Onset: 09-28-2018 Episodic Other aftercare (1 source) 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; 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] Onset: 01-15-2021 Episodic Other aftercare (1 source) Other correction (current) drug therapy; Translations: [OTH 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 THERAPY] Onset: 01-15-2021 Episodic Other [...] by: EPIFANIO KINSEY Date: 2021-10-25 14:57 Normal [facility] XR LSPINE 2_3 VIEWSon 2020 XR LSPINE [...] by: JACKIE JOHANSEN Date: 2021-02-07 12:13 Normal [facility] Kevin 01-30-2021 L - -------- Specimen: [id number] Received: 01/30/21 Status: MILTON Mckeon Num: [id number] Spec Type: Surgical Subm Dr: Rich Saavedra MD Tissues: A Colon - Polyp (RECTUM) Procedures: HE Stain/4, Gross/Micro L4 -------- Patient Age/Sex Location Account Attending Physician -------- Junito Hale/Deon [id number] Rich Saavedra MD -------- SPEC NUM: [id number] RECD: 01/30/21 STATUS: MILTON MCKEON NUM: [id number] REBECCA: 01/30/21- [facility] DR: Rich Saaverda MD ENTERED: 01/30/[address] [facility] [address]: SPEC TYPE: Surgical DEPT: S ORDERED: HE [...] Type of Fixative: 10% Neutral Buffered Formalin (LANETTE/YJ) Microscopic Description Four glass slides with H E stained material have been examined. The microscopic findings support the above pathologic diagnosis. CPT Codes 43572 -------- -------- Specimen: [id number] Received: 01/30/21 Status: MILTON Mckeon Num: [id number] Spec Type: Surgical Subm Dr: Rich Saavedra MD Tissues: A Colon - Polyp (RECTUM) Procedures: HE Stain/4, Gross/Micro L4 -------- Patient: Junito Hale [id number] (Continued) -------- Signed (signature on file) Ria Barahona MD 01/31/21 1317 [facility] COVID-19 Antigenon COVID-19 Antigen Healthcare Worker?: N [...] its performance Will Disclaimer characteristic determined by [employer] and Will Disclaimer validated at [facility]. This Will Disclaimer test has not [...] is terminated or revoked sooner. PERFORMED BY: [facility] [address] [place] [address] PATHOLOGIST ENGLISH LECTURER NAN SEAY M.D. Normal [facility] Comment on above: Performed By: #### C OVID-19 WILL, SOFIANEG #### [facility] [address] [place] [address] [facility] [[email or web address]] Will Ag Negativeon 01-27-20 Will Ag Negative Negative Normal Negative [facility] Comment on above: Result Comment: This is a duplicate Will SARS Antigen (JOANNA) result to be used for statistical tracking purpose only. PERFORMED BY: [place] [address] PATHOLOGIST ENGLISH LECTURER NAN SEAY M.D. Performed By: #### C OVID-19 WILL, SOFIANEG #### [facility] [address] CARDIAC SASHA ADMITon 021 CK [Catalytic activity/Vol] 149 U/L Normal 55-170 [facility] Comment on above: Performed By: #### B CESAR CLEMENTE #### [facility] [address] [place] [address] Dr. Dorothea Neff CK.MB [Mass/Vol] 1.33 ng/mL Normal <=2.37 [facility] Comment on above: Performed By: #### CESAR Chong MP #### [facility] [address] [place] [address] Dr. Dorothea Neff HSTROP 10.6 pg/mL Normal 4.0-42.2 [facility] Comment on above: Result Comment: CUT- OFF POINTS HAVE BEEN ESTABLISHED BASED ON THE FOURTH UNIVERSAL DEFINITIONS OF MYOCARDIAL INFARCTION. THE UPPER REFERENCE LIMIT (URL) OF TROPONIN, DEFINED THE 99TH PERCENTILE OF cTnI DISTRIBUTION IN A REFERENCE POPULATION, HAS BEEN CONFIRMED THE DECISION THRESHOLD FOR VT DIAGNOSIS. Performed By: #### B CESAR CLEMENTE #### [facility] [address] [place] [address] Dr. Dorothea Neff KENYON 62.0 ng/mL Normal <=121.0 [facility] Comment on above: Performed By: #### B ARIEL CLEMENTEDM #### [facility] [address] [place] [address] Dr. Dorothea Neff CBC W MANUAL DIFFon 01-14-20 21 ATYPICAL LYMPH # Normal [facility] Comment on above: Performed By: #### C NAHEEDMAN #### [facility] [address] [place] [address] Dr. Dorothea Neff ATYPICAL LYMPH % Normal [facility] Comment on above: Performed By: #### C JEWEL #### [facility] [address] [place] [address] Dr. Dorothea Neff BAND # Normal 0.0-0.3 [facility] Comment on above: Performed By: #### C JEWEL #### [facility] [address] [place] [address] Dr. Dorothea Neff BAND % Normal 0-5 [facility] Comment on above: Performed By: #### C JEWEL #### [facility] [address] [place] [address] Dr. Dorothea Neff BASOM # 0.00 103/ul Normal 0.00-0.10 [facility] Comment on above: Performed By: #### C JEWEL #### [facility] [address] [place] [address] Dr. Dorothea Neff BASOM % 0.0 % Critically low 0.2-2.0 [facility] Comment on above: Performed By: #### C JEWEL #### [facility] [address] [place] [address] Dr. Dorothea Neff BLAST # Normal [facility] Comment on above: Performed By: #### C JEWEL #### [facility] [address] [place] [address] Dr. Dorothea Neff BLAST % Normal [facility] Comment on above: Performed By: #### C JEWEL #### [facility] [address] [place] [address] Dr. Dorothea Neff CORRECTED WBC Normal 4.0-11.0 [facility] Comment on above: Performed By: #### C JEWEL #### [facility] [address] [place] [address] Dr. Dorothea Neff EOS # 0.00 103/ul Normal 0.00-0.70 [facility] Comment on above: Performed By: #### C JEWEL #### [facility] [address] [place] [address] Dr. Dorothea Neff EOS% 0.0 % Critically low 0.9-7.0 [facility] Comment on above: Performed By: #### C JEWEL #### [facility] [address] [address] [address] Dorothea Neff HCT 46.4 % Normal 42.0-54.0 [facility] Comment on above: Performed By: #### C JEWEL #### [facility] [address] [address] [address] Dorothea Neff HGB 15.5 g/dl Normal 14.0-18.0 [facility] Comment on above: Performed By: #### C JEWEL #### [facility] [address] [address] [address] Dorothea Neff LYMPHM # 4.45 103/ul Critically high 1.20-3.80 [facility] Comment on above: Performed By: #### C JEWEL #### [facility] [address] [place] [address] Dr. Dorothea Neff LYMPHM% 25.0 % Normal 20.5-60.0 [facility] Comment on above: Performed By: #### C JEWEL #### [facility] [address] [address] [address] Dorothea Neff MCH 31.6 pg Normal 25.9-34.0 [facility] Comment on above: Performed By: #### C JEWEL #### [facility] [address] [address] [address] Dorothea Neff MCHC 33.4 g/dl Normal 29.9-35.2 [facility] Comment on above: Performed By: #### C JEWEL #### [facility] [address] [address] [address] Dorothea Neff MCV 94.7 fL Critically high 80.0-94.0 [facility] Comment on above: Performed By: #### C JEWEL #### [facility] [address] [address] [address] Dorothea Neff METAMYELOCYTE # Normal [facility] Comment on above: Performed By: #### C JEWEL #### [facility] [address] [address] [address] Dorothea Neff METAMYELOCYTE % Normal [facility] Comment on above: Performed By: #### C JEWEL #### [facility] [address] [address] [address] Dorothea Neff MONOM# 1.42 103/ul Critically high 0.30-0.80 [facility] Comment on above: Performed By: #### C JEWEL #### [facility] [address] [address] [address] Dorothea Neff MONOM% 8.0 % Normal 1.7-12.0 [facility] Comment on above: Performed By: #### C JEWEL #### [facility] [address] [address] [address] Dorothea Neff MPV 11.1 fL Normal 9.5-13.5 [facility] Comment on above: Performed By: #### C JEWEL #### [facility] [address] [place] [address] Dr. Dorothea Neff MYELOCYTE # Normal [facility] Comment on above: Performed By: #### C JEWEL #### [facility] [address] [place] [address] Dr. Dorothea Neff MYELOCYTE % Normal [facility] Comment on above: Performed By: #### C JEWEL #### [facility] [address] [address] [address] Dorothea Neff NRBC Normal [facility] Comment on above: Performed By: #### C JEWEL #### [facility] [address] [place] [address] Dr. Dorothea Neff PLT 220 103/ul Normal 150-450 [facility] Comment on above: Performed By: #### C JEWEL #### [facility] [address] [place] [address] Dr. Dorothea Neff RBC 4.90 106/ul Normal 4.70-6.10 [facility] Comment on above: Performed By: #### C JEWEL #### [facility] [address] [place] [address] Dr. Dorothea Neff RDW 12.7 % Normal 11.0-15.0 [facility] Comment on above: Performed By: #### C BCMAN #### [facility] [address] [address] [address] Dorothea Neff SEG # 11.93 103/ul Critically high 1.40-6.50 [facility] Comment on above: Performed By: #### C BCMAN #### [facility] [address] [address] [address] Dorothea Neff SEG % 67.0 % Normal 43.0-75.0 [facility] Comment on above: Performed By: #### C NAHEEDMAN #### [facility] [address] [address] [address] Dorothea Neff WBC 17.8 103/ul Critically high 4.0-11.0 [facility] Comment on above: Performed By: #### C JEWEL #### [facility] [address] [place] [address] Dr. Dorothea Neff PROF CHEM 8 (BAS METB)on Anion gap [Moles/Vol] 14.8 mmol/L Normal [facility] Comment on above: Performed By: #### B CHYNA, CMADM #### [facility] [address] [address] [address] Dorothea Neff Calcium [Mass/Vol] 9.1 mg/dL Normal 8.4-10.2 [facility] Comment on above: Performed By: #### B CHYNA, CMADM #### [facility] [address] [address] [address] Dorothea Neff Chloride [Moles/Vol] 105 mmol/L Normal 98-107 [facility] Comment on above: Performed By: #### B MP, CMADM #### [facility] [address] [address] [address] Dorothea Neff CO2 [Moles/Vol] 28.6 mmol/L Normal 22.0-30.0 [facility] Comment on above: Performed By: #### B MP, CMADM #### [facility] [address] [address] [address] Dorothea Neff Creatinine [Mass/Vol] 1.05 mg/dL Normal 0.66-1.25 [facility] Comment on above: Performed By: #### B CHYNA, CMADM #### [facility] [address] [address] [address] Dorothea Neff EGFR-AF ECUADOREAN >60 Normal >=60 [facility] Comment on above: Performed By: #### B CHYNA, CMADM #### [facility] [address] [address] [address] Dorothea Neff EGFR-NON AF ECUADOREAN >60 Normal >=60 [facility] Comment on above: Performed By: #### B CHYNA, CMADM #### [facility] [address] [address] [address] Dorothea Neff Glucose [Mass/Vol] 114 mg/dL Critically high 74-106 [facility] Comment on above: Performed By: #### B CHYNA, CMADM #### [facility] [address] [address] [address] Dorothea Neff Potassium [Moles/Vol] 4.4 mmol/L Normal 3.4-5.0 [facility] Comment on above: Performed By: #### B CHYNA, CMADM #### [facility] [address] [address] [address] Dorothea Neff Sodium [Moles/Vol] 144 mmol/L Normal 137-145 [facility] Comment on above: Performed By: #### B CHYNA, CMADM #### [facility] [address] [address] [address] Dorothea Neff Urea nitrogen [Mass/Vol] 17.0 mg/dL Normal 9.0-20.0 [facility] Comment on above: Performed By: #### B CHYNA, CMADM #### [facility] [address] [address] [address] Dorothea Neff Urea nitrogen/Creatinine [Mass ratio] 16.2 mg/mg Normal [facility] Comment on above: Performed By: #### B CHYNA, CMADM #### [facility] [address] [address] [address] Dorothea Neff URIC ACID SERUMon 01-13-2021 Urate [Mass/Vol] 7.5 mg/dL Normal 3.5-8.5 [facility] Comment on above: Performed By: #### U CULLEN #### [facility] [address] [place] [address] Dr. Dorothea Neff XR CHEST 1 Von [...] by: EMELIA WIGGINS Date: 2021-01-13 06:24 Normal [facility] Vital Signs Date Time Vital Sign Value Performing Clinician Facility 04-14-2023 09:00-0500 Body height 171.45 cm Micah [employer] Other [facility] Other 04-14-2023 09:00-0500 Body mass index (BMI) [Ratio] 30.92 kg/m2 Micah Ball Other [facility] Other 04-14-2023 09:00-0500 Body weight 90.9 kg Micah Ball Other [facility] Other 04-14-2023 09:00-0500 Diastolic blood pressure 67 mm[Hg] Micah Ball Other [facility] Other 04-14-2023 09:00-0500 Respiratory rate 12 /min Micah Ball Other [facility] Other 04-14-2023 09:00-0500 Systolic blood pressure 135 mm[Hg] Micah Ball Other [facility] Other 10-11-2022 09:00-0400 Body height 171.45 cm Micah Ball Other [facility] Other 10-11-2022 09:00-0400 Body mass index (BMI) [Ratio] 31.04 kg/m2 Micah Ball Other [facility] Other 10-11-2022 09:00-0400 Body weight 91.26 kg Micah Ball Other [facility] Other 10-11-2022 09:00-0400 Diastolic blood pressure 87 mm[Hg] Micah Ball Other [facility] Other 10-11-2022 09:00-0400 Respiratory rate 12 /min Micah Ball Other [facility] Other 10-11-2022 09:00-0400 Systolic blood pressure 161 mm[Hg] Micah Ball Other [facility] Other Encounters Encounter Date Encounter Type Care Provider Facility Start: 09-01-2023 End: 09-01-2023 ambulatory Emily Martin MD Facility:[facility] Start: 04-14-2023 End: 04-14-2023 ambulatory Micah Ball Other [facility] Other Start: 04-14-2023 Office outpatient vi sit 25 minutes Micah Ball [facility] Start: 03-10-2023 End: 03-10-2023 ambulatory FREDERICK ZAMORA Not Available Start: 02-20-2023 End: 02-20-2023 ambulatory Micah Ball Other [facility] Other Start: 02-20-2023 Telephone encounter Micah Ball [facility] Start: 02-05-2023 End: 02-05-2023 ambulatory FREDERICK S ZAMORA Not Available Start: 01-31-2023 End: 01-31-2023 ambulatory Micah Ball Other [facility] Other Start: 01-31-2023 Telephone encounter Micah Ball [facility] Start: 10-11-2022 End: 10-11-2022 ambulatory Micah Whelan Other [facility] Other Start: 10-11-2022 Patient encounter procedure Micah Whelan [facility] Start: 06-27-2022 End: 06-27-2022 ambulatory Micah Whelan Other [facility] Other Start: 06-27-2022 Nursing evaluation o f patient and report Micah Whelan [facility] Start: 06-10-2022 End: 06-10-2022 ambulatory Micah Whelan Other [facility] Other Start: 06-10-2022 Telephone encounter Micah ENCINAS [facility] Start: 03-11-2022 ([facility]) [facility] Scheduled Micah Whelan [facility] Start: 03-11-2022 End: 03-11-2022 ambulatory Micah Whelan Other [facility] Other Start: 03-08-2022 End: 03-08-2022 ambulatory Micah Whelan Other [facility] Other Start: 03-08-2022 Nursing evaluation o f patient and report Micah Whelan [facility] Start: 10-31-2021 End: 11-01-[address] MICAH WHELAN Facility:[facility] Start: 10-25-2021 End: 10-26-[address] MICAH WHELAN Facility:[facility] Start: 10-09-2021 End: 10-10-[address] MICAH WHELAN Facility:[facility] Start: 10-03-2021 Adult health examination Micah Whelan Other [facility] Other Start: 02-07-2021 End: 02-08-[address] MICAH WHELAN Facility:[facility] Start: 01-13-2021 End: 01-13-[address] SASHA MCFADDEN Facility:[facility] Start: 11-28-2020 End: 11-28-2020 ambulatory SANYA MEJIA Facility:[facility] Procedures Date Procedure Procedure Detail Performing Clinician Start: 10-03-2021 Depression screening Be marjorie Whelan Other Immunizations Immunization Date Immunization Notes Care Provider Brown mueller 11-30-2021 COVID-19 Vaccine Pfi zer - Documentation Purposes Only Micah Tip Other [facility] Other 11-30-2021 influenza virus vaccine, split virus (incl. purified surface antigen) Micah Tip Other [facility] Other 06-05-2021 COVID-19 Vaccine Pfi zer - Documentation Purposes Only Micah Tip Other [facility] Other 04-14-2020 COVID-19 Vaccine Pfi zer - Documentation Purposes Only Micah Tip Other [facility] Other 12-09-2019 influenza virus vaccine, split virus (incl. purified surface antigen) Micah Whelan Other [facility] Other 12-20-2016 influenza virus vaccine, split virus (incl. purified surface antigen) Micah Tip Other [facility] Other 12-25-2015 pneumococcal conjuga te vaccine, 13 valent Micah Whelan Other [facility] Other 12-19-2015 influenza virus vaccine, split virus (incl. purified surface antigen) Micah Whelan Other [facility] Other 12-22-2013 pneumococcal polysaccharide vaccine, 23 valent Micah Tip Other [facility] Other 12-02-2013 tetanus and diphther ia toxoids, adsorbed, preservative free, for adult use (5 Lf of tetanus toxoid and 2 Lf of diphtheria toxoid) Micah Whelan Other [facility] Other 11-05-2011 tetanus and diphther ia toxoids, adsorbed, preservative free, for adult use (5 Lf of tetanus toxoid and 2 Lf of diphtheria toxoid) Micah Whelan Other [facility] Other Payers Date Payer Category Payer Medicare 2023 Unknown 1959 Medicare [id number] 1959 Unknown [id number] 1959 Unknown [id number] 1942 Unknown [id number] 2.16.84 [id number] 1942 Unknown [id number] 2.16.84 [id number] 1942 Unknown [id number] 2.16.84 [id number] 1942 Unknown [id number] 2.16.84 [id number] 1942 Unknown [id number] 2.16.84 [id number] 1942 Unknown [id number] 2.16.84 [id number] 1942 Unknown [id number] 2.16.84 [id number] 1942 Unknown [id number] 2.16.840 .[id number] 1942 Unknown [id number] 2.16. [id number] Social History Date Type Detail Facility Sex Assigned At [facility] Other Evaluation note 04-14-2023 Note Date & [...] and insulin resistance. Instructed on weight loss [facility] Other Evaluation note 10-11-2022 Note Date & [...] Microalbumin, Dilated eye exam and Foot exam [facility] Other Evaluation note 06-27-2022 Note Date & Type Note Facility 06-27-2022 Evaluation note Encounter Date Diagnosis Assessment Notes Jun, Seasonal allergic rhinitis due to pollen (ICD-10 - J30.1) [facility] Other Evaluation note 03-11-2022 Note Date & [...] - E78.00) Hold Atorvastatin while taking Paxlovid [facility] Other Evaluation note 03-08-2022 Note Date & Type Note Facility 03-08-2022 Evaluation note Encounter Date Diagnosis Assessment Notes Mar, Seasonal allergies (ICD-10 - J30.2) [facility] Other Evaluation note Note Date & Type Note Facility Evaluation note No Information [employer] Other History general Narrative - Reported Note [...] Surgical History UMBILICAL HERNIA REPAIR Surgical History [facility] Surgical History COLONOSCOPY Surgical History B/L INGUINAL HERNIA REPAIR Hospitalization History SEE SURGICAL HX [facility] Other History general Narrative - Reported Note [...] Surgical History UMBILICAL HERNIA REPAIR Surgical History C Surgical History COLONOSCOPY Surgical History B/L INGUINAL HERNIA REPAIR Surgical History Colonoscopy w/ polyp ectomy (polypectomy) 2020 Hospitalization History SEE SURGICAL HX [facility] Other Summary Purpose Family History No Family History Records FoundNo Family History Records FoundNo Family History Records FoundNo Family History Records Found Advance Directives No Advanced Directives Records FoundNo Advanced Directives Records FoundNo Advanced Directives Records FoundNo Advanced Directives Records Found Additional Source Comments (unrecognized sect ion and content) No Status Records FoundNo Status Records FoundNo Status Records FoundNo Status Records Found INFORMATION SOURCE (unrecogn ized section and content) DATE CREATED AUTHOR 03/28/2021 [facility] DATE CREATED AUTHOR AUTHOR'S ORGANIZ ATION 11/01/2021 [facility] DATE CREATED AUTHOR AUTHOR'S ORGANIZ ATION 03/11/2023 [facility] EPIC DATE CREATED AUTHOR AUTHOR'S ORGANIZ ATION 09/06/2023 [facility] REASON FOR VISIT (unrecogniz ed section and [...] BE BASED ON THE PRIMARY CLINICAL RECORDS. [employer] [facility]. provides no warranty or guarantee of the accuracy or completeness of information in this document.
--- NOTE | 2023-09-22 14:30 | P.CN_ITS ---
Consult Note: HPI Data of Consult Patient: known to practice within the last 3 years Consult date: 09/22/23 Requesting Physician: Emily Martin MD Primary Care Provider: Micah Whelan, Consult Narrative Reason for consult: low back pain Narrative: 82yom who presents for assessment. states that he continues to feel well after steroid dosepack, no symptoms recently. 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 uses otc pain meds as needed, as well as supplements and vitamins. cc:: CC: Emily Martin MD Review of Systems ROS Status of ROS 10 or more systems reviewed and unremark able except as noted in history and below Meds Home Medications and Allergies Home Medications ?Medication ?Instructions ?Recorded ?Confirmed ?Type alendronate 70 mg tablet 70 mg PO QWEEK 09/02/23 09/02/23 History amlodipine 5 mg tablet 5 mg PO DAILY 09/02/23 09/02/23 History atorvastatin 40 mg tablet 40 mg PO DAILY 09/02/23 09/02/23 History calcium citrate 200 mg 1 tab PO DAILY 09/02/23 09/02/23 History calcium-vitamin D3 3.125 mcg (125 unit) tablet cetirizine 10 mg tablet (Allergy 10 mg PO DAILY PRN allergy symptoms 09/02/23 09/02/23 History Relief (cetirizine)) pantoprazole 40 mg tablet,delayed 40 mg PO DAILY 09/02/23 09/02/23 History release Allergies Allergy/AdvReac Type Severity Reaction Status Date / Time acetaminophen [From Vicodin] Allergy Unknown Unknown Verified 09/02/23 08:12 hydrocodone [From Vicodin] Allergy Unknown Unknown Verified 09/02/23 08:12 Penicillins Allergy Unknown Unknown Verified 09/02/23 08:12 Exam Narrative Exam Narrative: Psych-alert and oriented x 3. Attentive and appropriate, constitutionally carolyn l, displays normal mood and affect per situation.? There are no obvious deficits in memory, reasoning, or intellect.? Skin-no obvious rashes, bruising, erythema noted to the patient's area of pain. Extremities- extremities are warm with minimal edema and palpable pulses. Lumbar-no significant tenderness to palpation noted in the lumbar spine and paraspinal musculature.? Pain is elicited with extension, and lateral rotation of the lumbar spine. Range of motion is slightly diminished with these motions due to pain. Coordination remains intact.? Gait remains non-antalgic. Assessment and Plan Assessment and Plan (1) Lumbar stenosis with neurogenic claudication: Plan 82yom who presents for assessment. imaging reviewed, as noted above. given that he has no pain at this time, we discussed that we would hold off on any plans at this time. discussed that if his symptoms were to return, given his imaging findings, he may potentially benefit from interventional modalities. he expressed understanding. meds reviewed. no additional meds at this time. follow up as needed.
== END 2023-09-22 13:17 | disposition home or self-care (01) ==
LOC: PM 13:16
PROVIDERS: PCP Internal Medicine; Visit Provider Anesthesiology
DX: M48.062 Spinal stenosis, lumbar region with neurogenic claudication (principal)
CPT/HCPCS: G0463

== ENCOUNTER 2024-05-17 08:42 | Outpatient (OUT) | payer MEDICARE, BC, SELFPAY ==
--- NOTE | 2024-05-17 09:00 | CA_ITS ---
Patient Name: TE QUINN MR#: [id number] : 1940 Exam Date: 05/17/2024 Ordering Doctor: DR Micah Whelan D.O. ECHOCARDIOGRAM REPORT PROCEDURE: CA ECHO DOPPLER COMPLETE INDICATIONS: Heart murmur, hypertension, edema of lower extremity, occasional smoker COMPARISON: None. DESCRIPTION: COMPLETE ECHOCARDIOGRAM Real-time transthoracic echocardiography with 2D, M-mode, spectral and color flow Doppler performed. QUALITY: Technical quality was adequate. LEFT VENTRICLE: Normal chamber size. Moderate concentric left ventricular hypertrophy. Normal systolic function. LV EF: Normal left ventricular ejection fraction, (55-60%). DIASTOLIC: ATRIAL SEPTUM: LEFT ATRIUM: Normal chamber size. RIGHT ATRIUM: Normal chamber size. RIGHT VENTRICLE: Normal chamber size. Normal right ventricular systolic function. TRICUSPID VALVE: Normal mobility and thickness. No stenosis with trivial regurgitation. No evidence of pulmonary hypertension. RVSP 27 mmHg MITRAL VALVE: Normal mobility and thickness. No evidence of mitral valve stenosis. Mild mitral annular calcification. No mitral regurgitation. AORTIC VALVE: Normal trileaflet appearance. Mildly calcified aortic valve. Normal leaflet mobility. No evidence of aortic valve stenosis. No aortic regurgitation. AORTIC ROOT: Normal diameter and appearance. PULMONIC VALVE: Normal thickness and mobility. No stenosis. No regurgitation. PERICARDIUM: No evidence of pericardial effusion. IVC: Not well visualized. PLEURA: CONCLUSION: 1. Mild concentric left ventricular hypertrophy with normal systolic function. Estimated LVEF is 55 to 60%. 2. Normal right ventricular size and systolic function. 3. No significant valvular dysfunction. 4. Normal right-sided pressures. Adult Echocardiography Procedure Report Left Ventricle LVEDD (3.7 - 5.6 cm): 4.39 cm LVESD (2.2 - 4.0 cm): 3.31 cm LVIVS thickness (0.6 - 1.2 cm): 1.53 cm LVPW thickness (0.5 - 1.0 cm): 1.27 cm e': 0.07 m/s E - e': 6.56 LVOT Max Gradient: 1.40 mm[Hg] LVOT Area (cm2): 0.59 m/s Peak Velocity (LVOT): 0.59 m/s Mean Velocity (LVOT): 0.39 m/s LVOT Diameter 2.24 cm Left Atrium Left Atrium Systolic Dimension: 3.86 cm Mitral Valve MV E to A Ratio: 0.73 Mitral Valve A-Wave Peak Velocity: 0.67 m/s Mitral Valve E-Wave Peak Velocity: 0.49 m/s Right Ventricle Aorta AO Root Diam: 3.32 cm Ascending Ao Diam: 3.25 cm Aortic Valve AoV Area (Peak Donavan): 2.25 cm2, 2.25 cm2 AoV Area (VTI): 2.20 cm2, 2.20 cm2 Peak Velocity(Antegrade Flow): 1.03 m/s Peak Gradient(Antegrade Flow): 4.27 mm[Hg] Mean Velocity(Antegrade Flow): 0.75 m/s Mean Gradient(Antegrade Flow): 2.53 mm[Hg] Velocity Time Integral: 21.01 cm Tricuspid Valve Peak Velocity (Regurgitant Flow): 2.43 m/s Pulmonic Valve Mean Gradient: 2.96 mm[Hg] Mean Velocity: 0.79 m/s Peak Velocity: 1.25 m/s, 1.39 m/s Peak Gradient: 7.70 mm[Hg], 6.25 mm[Hg] Right Atrium Right Atrium Systolic Pressure: 24.09 ml, 24.09 ml Dictated by: Socrates Au M.D. on 05/17/2024 at 17:53 Approved by: Socrates Au M.D. on 05/17/2024 at 17:57
--- OUTSIDE RECORDS SUMMARY | 2024-05-17 09:01 | XMS_ITS | CCD ---
Author Organization [facility] Care Team Providers Care Online Media Buyer Name Role Phone TIP, DR HARRIS Admitting Unavailable BALL, DR HARRIS Attending Unavailable BALL, DR HARRIS Consulting Unavailable TIP, DR HARRIS Primary Care Unavailable Zieber, DR Hull Consulting Unavailable TIP, DR HARRIS Primary Care Unavailable TIP, DR HARRIS Admitting Unavailable BALL, DR HARRIS Attending Unavailable BALL, DR HARRIS Consulting Unavailable Brown, Epifanio Consulting Unavailable ROBERTO, SANYA JORDAN Admitting [...] DR HARRIS Consulting Unavailable Tip, Micah Unavailable Mario NAGY, Emily Malcolm Unavailable Mario NAGY, Emily Recinos Attending Unavailable Tip NAGY, Micah Aviles Primary Care Provider RILEY MAGALLANES Attending Unavailable Allergies Allergy Classification Reported Allergen(s) Allergy Type Date of Onset Reaction(s) Facility (2 sources) Penicillins Drug allergy (disorder) 11-01-19 13 Unknown Reaction [facility] Repository (4 sources) Vicodin *ANALGESICS - OPIOID* Propensity to adverse reactions Unknown [employer]cast [employer] System Other (4 sources) Substance with penicillin structure and antibacterial mechanism of action (substance) Drug allergy Unknown Broadcast [employer] Other (2 sources) Acetaminophen / HYDROcodone Drug Allergy 01-21-20 17 [facility] (2 sources) Penicillin G Drug Allergy 06-09-19 10 [facility] (1 source) Acetaminophen Drug Allergy 05-08-19 25 Unknown Reaction [facility] (1 source) HYDROcodone Drug Allergy 05-08-19 25 Unknown Reaction [facility] Medications Current Medications Medication Drug Class(es) Dates Sig (Normalized) Sig (Original) alendronic acid 70 mg oral tablet (2 sources) Bisphosphonate Start: 08-20-2023 End: 11-05-2023 take 1 tablet by mouth every week Alendronate 70 mg tablet Active 70 MG PO every week November 05, 2023 12:00am take on empty stomach w/ a glass of water, avoid lying flat or eating for 30 minutes amLODIPine 5 mg oral tablet (9 sources) Dihydropyridine Calcium Channel Reyes Start: 11-05-2023 take 1 tablet by mouth once daily amLODIPine (Norvasc) 5 MG tablet Take 5 mg by mouth Daily 12/24/2023 Active Start: 09-23-2023 End: 11-05-2023 take 1 tablet by mouth once daily Amlodipine 5 mg tablet Discontinued 0 .ROUTE .COMPLEX September 23, 2023 8:50am November 05, 2023 11:11am TAKE 1 TABLET BY MOUTH DAILY Start: 08-20-2023 End: 09-23-2023 take 1 tablet by mouth once daily Amlodipine 5 mg tablet Discontinued 5 MG PO Daily August 20, 2023 12:00am September 23, 2023 8:50am Start: 08-07-2022 take 1 tablet by jone th every twenty-four hours amLODIPine Besylate 5 MG 1 tablet Orally Once a day Aug, Active aspirin 81 mg delayed release oral tablet (1 source) Platelet Aggregation Inhibitor, Nonsteroidal Anti-inflammatory Drug Start: 01-30-2021 take 1 tablet by mouth once daily Aspirin 81 mg Tablet,Delayed Release (Dr/Ec) Active 81 MG PO Daily January 30, 2021 1:00am betamethasone 0.5 mg/ml / clotrimazole 10 mg/ml topical cream (1 source) Azole Antifungal, Corticosteroid Start: 11-17-2023 Clotrimazole-Betame thasone 1-0.05 % cream Active 1 APPLIC TOPICAL Twice daily as needed for groin rash November 17, 2023 12:00am Calcium Carbonate-Vitamin D3 500 mg-5 mcg (200 unit) tablet (1 source) Start: 08-20-2023 take 1 tablet by mouth twice daily Calcium Carbonate-Vitamin D3 500 mg-5 mcg (200 unit) tablet Active 1 TAB PO Twice daily August 20, 2023 12:00am cetirizine hydrochloride 10 mg oral capsule (3 sources) Histamine-1 Receptor Antagonist Start: 01-30-2021 take 1 capsule by mouth once daily Cetirizine (Zyrtec) 10 mg Capsule Active 10 MG PO Daily January 30, 2021 1:00am Cholecalciferol (4 sources) Vitamin D Start: 08-07-2022 Cholecalciferol 75 MCG (3000 UT) as directed Orally Once a day Aug, Active predniSONE 20 mg oral tablet (3 sources) Start: 05-07-2024 Prednisone 20 mg tablet Active 20 MG PO As Directed 18 11May 07, 2024 11:10am 1 tab tid w/ food x 3 days, then bid w/ food x 3 days, then qd w/ food x 3 days Start: 11-17-2023 End: 05-07-2024 Prednisone 20 mg tablet Disc ontinued 20 MG PO As Directed 18 11November 17, 2023 12:00am May 07, 2024 11:10am 1 tab tid w/ food x 3 days, then bid w/ food x 3 days, then qd w/ food x 3 days Start: 08-20-2023 End: 11-05-2023 Prednisone 10 mg tablet Disc ontinued 10 MG PO As Directed 18 11August 20, 2023 12:00am November 05, 2023 11:10am 1 tab tid w/ food x 3 days, then bid w/ food x 3 days, then qd w/ food x 3 days Triamcinolone (18 sources) Corticosteroid Start: 11-17-2023 Triamcinolone Acetonide 0.5 % ointment Active 1 APPLIC TOPICAL Twice daily as needed for lower extremity rash 45 14 November 17, 2023 12:00am Start: 03-08-2022 Kenalog-40 Jun, 60 mg {20 (nirmatrelvir 150 MG Oral Tablet) / 10 (ritonavir 100 MG Oral Tablet) } Pack [Paxlovid 5-Day] (4 sources) Start: 03-11-2022 take 3 tablets by mouth every twelve hours Paxlovid (300/100) 20 x 150 MG & 10 x 100MG 3 tablets Orally Twice a day for 5 day(s) Mar, Active Completed/Discontinued Medications Medication Drug Class(es) Dates Sig (Normalized) Sig (Original) atorvastatin 40 mg oral tablet (11 sources) HMG-CoA Reductase Inhibitor Start: 07-10-2023 End: 11-05-2023 take 1 tablet by mouth once daily Atorvastatin 40 mg tablet Discontinued 0 .ROUTE .COMPLEX July 10, 2023 3:29pm November 05, 2023 11:11am TAKE 1 TABLET BY MOUTH ONCE DAILY Start: 01-30-2021 End: 07-10-2023 take 1 tablet by mouth once daily Atorvastatin 40 mg tablet Active 40 MG PO Daily November 05, 2023 11:11am metoprolol tartrate 50 mg oral tablet (1 source) beta-Adrenergic Reyes Start: 01-30-2021 End: 11-05-2023 take 1 tablet by mouth once daily Metoprolol Tartrate 50 mg tablet Discontinued 50 MG PO Daily January 30, 2021 1:00am November 05, 2023 11:11am pantoprazole 40 mg delayed release oral tablet (11 sources) Proton Pump Inhibitor Start: 07-10-2023 End: 11-05-2023 take 1 tablet by mouth once daily Pantoprazole 40 mg tablet,delayed release (DR/EC) Discontinued 0 .ROUTE .COMPLEX July 10, 2023 3:29pm November 05, 2023 11:12am TAKE 1 TABLET BY MOUTH ONCE DAILY Start: 01-30-2021 End: 07-10-2023 take 1 tablet by mouth once daily Pantoprazole 40 mg tablet,delayed release (DR/EC) Active 40 MG PO Daily November 05, 2023 11:12am Suprep Bowel Prep . (8 sources) Start: 08-31-2014 Suprep Bowel P rep . as directed Orally 1 for 1 days Aug, Not-Taking/PRN Start: 08-31-2014 Suprep Bowel P rep . as directed Orally 1 for 1 days Aug, Not-Taking Start: 08-31-2014 Suprep Bowel P rep . as directed Orally 1 for 1 days Aug, Active Problems Active Problems Problem Classification Problem Date Documented Da te Episodic/Chronic Abdominal pain (8 sources) Epigastric pain; Translations: [Abdominal pain] Onset: 01-13-2021 Episodic Allergic reactions (5 sources) Contact dermatitis; Translations: [Unspecified contact dermatitis, unspecified cause] Onset: 05-07-2013 11-17-2023 Episodic Cancer of colon (13 sources) History of malignant neoplasm of colon; Translations: [Personal history of other malignant neoplasm of large intestine] 10-20-2023 Episodic Chronic obstructive pulmonary disease and bronchiectasis (1 source) Bronchitis, not specified as acute or chronic Episodic Diabetes mellitus without complication (8 sources) Impaired fasting glycemia; Translations: [Impaired fasting glucose] Onset: 02-04-2022 Episodic Disorders of lipid metabolism (20 sources) Pure hypercholesterolemia , unspecified; Translations: [Hypercholesterolemi a] Onset: 01-15-2021 Chronic Esophageal disorders (2 sources) Gastro-esophageal reflux disease with esophagitis; Translations: [Gastro-esophageal reflux disease with esophagitis, without bleeding] Chronic Essential hypertension (18 sources) Essential (primary) hypertension; Translations: [Essential hypertension] [...] Translations: [Vitamin D deficiency, unspecified] Chronic Osteoporosis (6 sources) Primary osteoporosis; Translations: [Age-related osteoporosis without current pathological fracture] 10-20-2023 Chronic Comment on above: DEXA: 08/2023 Other and unspecified benign neoplasm (9 sources) History of polyp of colon; Translations: [Personal history of colonic polyps] 02-12-2023 Episodic Comment on above: Problem List clean-u p per request of Phys. EHR Cmte Other and unspecified benign neoplasm (8 sources) Benign neoplasm of transverse colon; Translations: [Benign neoplasm of transverse colon] Episodic Other and unspecified benign neoplasm (1 source) Polyp of colon; Translations: [Polyp of colon] 10-20-2023 Episodic Other connective tissue disease (4 sources) Other symptoms and signs involving the nervous system; Translations: [Other symptoms and signs involving the nervous system] Episodic Other connective tissue disease (2 sources) Disorder of nervous system; Translations: [Other symptoms and signs involving the nervous system] Episodic Other diseases of veins and lymphatics (1 source) Venous insufficiency of leg; Translations: [Venous insufficiency (chronic) (peripheral)] 11-17-2023 Episodic Other injuries and conditions due to external causes (3 sources) History of fall; Translations: [History of falling] Episodic Other injuries and conditions due to external causes (1 source) History of falling; Translations: [History of falling] Episodic Other lower respiratory disease (2 sources) Snoring; Translations: [Snoring] 03-18-2024 Episodic Other non-traumatic joint disorders (4 sources) [...] conditions (not mental disorders or infectious disease) (2 sources) Encounter for screening for malignant neoplasm of prostate; Translations: [Patient encounter status] Episodic Other upper respiratory disease (8 sources) Seasonal allergy; Translations: [Other seasonal allergic rhinitis] Chronic Other upper respiratory disease (2 sources) Other seasonal allergic rhinitis; Translations: [Other seasonal allergic rhinitis] Onset: 03-03-1957 Chronic Other upper respiratory disease (10 sources) Allergic rhinitis due to pollen; Translations: [Allergic rhinitis due to pollen] Resolved: 02-04-2022 08-11-2023 Chronic Other upper respiratory disease (1 source) [...] vascular disease, unspecified] Chronic Residual codes; unclassified (5 sources) Obstructive sleep apnea (adult) (pediatric); Translations: [Obstructive sleep apnea (adult)(pediatric)] Onset: 10-31-2021 Chronic Residual codes; unclassified (7 sources) Obstructive sleep apnea syndrome; Translations: [Obstructive sleep apnea (adult) (pediatric)] 03-18-2024 Chronic Residual codes; unclassified (2 sources) Hypersomnia; Translations: [Hypersomnia, unspecified] 03-18-2024 Chronic Residual codes; unclassified (2 sources) Periodic limb movement disorder; Translations: [Periodic limb movement disorder] 03-18-2024 Chronic Residual codes; unclassified (8 sources) H/O: major abdominal surgery; Translations: [Other specified postprocedural states] Episodic Residual codes; unclassified (1 source) Edema of lower extremity; Translations: [Localized edema] 05-07-2024 Episodic Residual codes; unclassified (1 source) Localized edema; Translations: [Edema] 05-07-2024 Episodic Spondylosis; intervertebral disc disorders; other back problems (2 sources) Lumbar spondylosis; Translations: [Spondylosis without myelopathy or radiculopathy, lumbar region] 08-20-2023 Chronic Spondylosis; intervertebral disc disorders; other back problems (1 source) Low back pain; Translations: [Low back pain] 08-20-2023 Episodic Past or Other Problems Problem Classification Problem Date Documented Da te Episodic/Chronic Acute bronchitis (4 sources) Acute bronchitis; Translations: [Acute bronchitis, unspecified] Onset: 08-09-2013 Episodic Conditions associated with dizziness or vertigo (4 sources) Dizziness and giddiness; Translations: [Dizziness and giddiness] Onset: 10-24-2016 Episodic Esophageal disorders (4 sources) Esophageal disorders; [...] Onset: 09-28-2018 Episodic Other aftercare (1 source) senior care (current) use of aspirin; Translations: [RESIDENTIAL CURRENT USE OF ASPIRIN] Onset: 01-15-2021 Episodic Other aftercare (1 source) Other reference test clerk (current) drug therapy; Translations: [OTH HOUSEFELLOW CURRENT DRUG THERAPY] Onset: 01-15-2021 Episodic Other [...] by: EPIFANIO KINSEY Date: 2021-10-25 14:57 Normal [facility] XR LSPINE 2_3 VIEWSon 2020 XR [...] by: JACKIE JOHANSEN Date: 2021-02-07 12:13 Normal [facility] Kevin 01-30-2021 L - -------- Specimen: [id number] Received: 01/30/21 Status: MILTON Mckeon Num: [id number] Spec Type: Surgical Subm Dr: Rich Saavedra MD Tissues: A Colon - Polyp (RECTUM) Procedures: HE Stain/4, Gross/Micro L4 -------- Patient Age/Sex Location Account Attending Physician -------- Junito Hale 80/M [id number] Rich Saavedra MD -------- SPEC NUM: [id number] RECD: 01/30/21 STATUS: MILTON MCKEON NUM: [id number] REBECCA: 01/30/21 DR: Rich Saavedra MD ENTERED: 01/30/[address]: SPEC TYPE: Surgical DEPT: [facility] BY: [id number] ORDERED: HE Stain/4, Gross/Micro L4 ORDERED: HE [...] support the above pathologic diagnosis. CPT Codes 23214 -------- -------- Specimen: [id number] Received: 01/30/21 Status: MILTON Mike Num: [id number] Spec Type: Surgical Subm Dr: Rich Saavedra MD Tissues: A Colon - Polyp (RECTUM) Procedures: HE Stain/4, Gross/Micro L4 -------- Patient: RandyJunito [id number] (Continued) -------- Signed (signature on file) Ria Barahona MD 01/31/[address] [facility] COVID-19 Antigenon COVID-19 Antigen Healthcare Worker?: [...] its performance Will Disclaimer characteristic determined by [employer] and Will Disclaimer validated at [facility]. This Will Disclaimer test has [...] is terminated or revoked sooner. PERFORMED BY: [place] [address] PATHOLOGIST RUBBER FLAP CUTTER NAN SEAY M.D. Normal [facility] Comment on above: Performed By: #### C OVID-19 WILL, SOFIANEG #### [facility] [id number] [facility] Will Ag Negativeon 01-27-20 Will Ag Negative Negative Normal Negative [facility] Comment on above: Result Comment: This is a duplicate Will SARS Antigen (JOANNA) result to be used for statistical tracking purpose only. PERFORMED BY: [facility] [address] [place] [address] PATHOLOGIST RUBBER FLAP CUTTER NAN SEAY M.D. Performed By: #### C OVID-19 WILL, SOFIANEG #### [facility] [address] CARDIAC SASHA ADMITon 021 CK [Catalytic activity/Vol] 149 U/L Normal 55-170 [facility] Comment on above: Performed By: #### B CHYNA, CMADM #### [facility] [address] [place] [address] Dr. Dorothea Neff CK.MB [Mass/Vol] 1.33 ng/mL Normal <=2.37 [facility] Comment on above: Performed By: #### B ARIEL CLEMENTEDM #### [facility] [address] [place] [address] Dr. Dorothea Neff HSTROP 10.6 pg/mL Normal 4.0-42.2 [facility] Comment on above: Result Comment: CUT- OFF POINTS HAVE BEEN ESTABLISHED BASED ON THE FOURTH UNIVERSAL DEFINITIONS OF MYOCARDIAL INFARCTION. THE UPPER REFERENCE LIMIT (URL) OF TROPONIN, DEFINED THE 99TH PERCENTILE OF cTnI DISTRIBUTION IN A REFERENCE POPULATION, HAS BEEN CONFIRMED THE DECISION THRESHOLD FOR PR DIAGNOSIS. Performed By: #### B CESAR CLEMENTE #### [facility] [address] [place] [address] Dr. Dorothea Neff KENYON 62.0 ng/mL Normal <=121.0 [facility] Comment on above: Performed By: #### B CESAR CLEMENTE #### [facility] [address] [place] [address] Dr. Dorothea Neff CBC W MANUAL DIFFon 01-14-20 21 ATYPICAL LYMPH # Normal [facility] Comment on above: Performed By: #### C JEWEL #### [facility] [address] [place] [address] Dr. Dorothea Neff ATYPICAL LYMPH % Normal [facility] Comment on above: Performed By: #### C JEWEL #### [facility] [address] [place] [address] Dr. Dorothea Neff BAND # Normal 0.0-0.3 [facility] Comment on above: Performed By: #### C JEWEL #### [facility] [address] [place] [address] Dr. Dorothea Neff BAND % Normal 0-5 [facility] Comment on above: Performed By: #### C BCJURGEN #### [facility] [address] [place] [address] Dr. Dorothea Neff BASOM # 0.00 103/ul Normal 0.00-0.10 [facility] Comment on above: Performed By: #### C BCJURGEN #### [facility] [address] [place] [address] Dr. Dorothea Neff BASOM % 0.0 % Critically low 0.2-2.0 [facility] Comment on above: Performed By: #### C BCJURGEN #### [facility] [address] [place] [address] Dr. Dorothea Neff BLAST # Normal [facility] Comment on above: Performed By: #### C JEWEL #### [facility] [address] [place] [address] Dr. Dorothea Neff BLAST % Normal [facility] Comment on above: Performed By: #### C JEWEL #### [facility] [address] [place] [address] Dr. Dorothea Neff CORRECTED WBC Normal 4.0-11.0 [facility] Comment on above: Performed By: #### C JEWEL #### [facility] [address] [place] [address] Dr. Dorothea Neff EOS # 0.00 103/ul Normal 0.00-0.70 [facility] Comment on above: Performed By: #### C BCJURGEN #### [facility] [address] [place] [address] Dr. Dorothea Neff EOS% 0.0 % Critically low 0.9-7.0 [facility] Comment on above: Performed By: #### C BCJURGEN #### [facility] [address] [place] [address] Dr. Dorothea Neff HCT 46.4 % Normal 42.0-54.0 [facility] Comment on above: Performed By: #### C JEWEL #### [facility] [address] [place] [address] Dr. Dorothea Neff HGB 15.5 g/dl Normal 14.0-18.0 [facility] Comment on above: Performed By: #### C JEWEL #### [facility] [address] [place] [address] Dr. Dorothea Neff LYMPHM # 4.45 103/ul Critically high 1.20-3.80 [facility] Comment on above: Performed By: #### C JEWEL #### [facility] [address] [place] [address] Dr. Dorothea Neff LYMPHM% 25.0 % Normal 20.5-60.0 [facility] Comment on above: Performed By: #### C JEWEL #### [facility] [address] [place] [address] Dr. Dorothea Neff MCH 31.6 pg Normal 25.9-34.0 [facility] Comment on above: Performed By: #### C JEWEL #### [facility] [address] [place] [address] Dr. Dorothea Neff MCHC 33.4 g/dl Normal 29.9-35.2 [facility] Comment on above: Performed By: #### C JEWEL #### [facility] [address] [place] [address] Dr. Dorothea Neff MCV 94.7 fL Critically high 80.0-94.0 [facility] Comment on above: Performed By: #### C JEWEL #### [facility] [address] [place] [address] Dr. Dorothea Neff METAMYELOCYTE # Normal [facility] Comment on above: Performed By: #### C JEWEL #### [facility] [address] [place] [address] Dr. Dorothea Neff METAMYELOCYTE % Normal [facility] Comment on above: Performed By: #### C BCJURGEN #### [facility] [address] [place] [address] Dr. Dorothea Neff MONOM# 1.42 103/ul Critically high 0.30-0.80 [facility] Comment on above: Performed By: #### C BCJURGEN #### [facility] [address] [id number] Dorothea Neff MONOM% 8.0 % Normal 1.7-12.0 [facility] Comment on above: Performed By: #### Yg HOLLOWAY #### [facility] [address] [place] [address] Dr. Dorothea Neff MPV 11.1 fL Normal 9.5-13.5 [facility] Comment on above: Performed By: #### C JEWEL #### [facility] [address] [place] [address] Dr. Dorothea Neff MYELOCYTE # Normal [facility] Comment on above: Performed By: #### Yg HOLLOWAY #### [facility] [address] [place] [address] Dr. Dorothea Neff MYELOCYTE % Normal [facility] Comment on above: Performed By: #### Yg HOLLOWAY #### [facility] [address] [place] [address] Dr. Dorothea Neff NRBC Normal [facility] Comment on above: Performed By: #### Yg HOLLOWAY #### [facility] [address] [place] [address] Dr. Dorothea Neff PLT 220 103/ul Normal 150-450 [facility] Comment on above: Performed By: #### C JEWEL #### [facility] [address] [place] [address] Dr. Dorothea Neff RBC 4.90 106/ul Normal 4.70-6.10 [facility] Comment on above: Performed By: #### C JEWEL #### [facility] [address] [place] [address] Dr. Dorothea Neff RDW 12.7 % Normal 11.0-15.0 [facility] Comment on above: Performed By: #### C JEWEL #### [facility] [address] [place] [address] Dr. Dorothea Neff SEG # 11.93 103/ul Critically high 1.40-6.50 [facility] Comment on above: Performed By: #### Yg HOLLOWAY #### [facility] [address] [place] [address] Dr. Dorothea Neff SEG % 67.0 % Normal 43.0-75.0 [facility] Comment on above: Performed By: #### C JEWEL #### [facility] [address] [address] [address] Dorothea Neff WBC 17.8 103/ul Critically high 4.0-11.0 [facility] Comment on above: Performed By: #### C JEWEL #### [facility] [address] [address] [address] Dorothea Neff PROF CHEM 8 (BAS METB)on Anion gap [Moles/Vol] 14.8 mmol/L Normal [facility] Comment on above: Performed By: #### B CESAR CLEMENTE #### [facility] [address] [address] [address] Dorothea Neff Calcium [Mass/Vol] 9.1 mg/dL Normal 8.4-10.2 [facility] Comment on above: Performed By: #### CESAR Chong MP #### [facility] [address] [address] [address] Dorothea Neff Chloride [Moles/Vol] 105 mmol/L Normal 98-107 [facility] Comment on above: Performed By: #### CESAR Chong MP #### [facility] [address] [address] [address] Dorothea Neff CO2 [Moles/Vol] 28.6 mmol/L Normal 22.0-30.0 [facility] Comment on above: Performed By: #### B CESAR CLEMENTE #### [facility] [address] [address] [address] Dorothea Neff Creatinine [Mass/Vol] 1.05 mg/dL Normal 0.66-1.25 [facility] Comment on above: Performed By: #### CESAR Chong MP #### [facility] [address] [address] [address] Dorothea Neff EGFR-AF MALDIVIAN >60 Normal >=60 [facility] Comment on above: Performed By: #### CESAR Chong MP #### [facility] [address] [address] [address] Dorothea Neff EGFR-NON AF MALDIVIAN >60 Normal >=60 [facility] Comment on above: Performed By: #### B CHYNA, CESAR #### [facility] [address] [address] [address] Dorothea Neff Glucose [Mass/Vol] 114 mg/dL Critically high 74-106 [facility] Comment on above: Performed By: #### B CHYNA, CMADM #### [facility] [address] [place] [address] Dr. Dorothea Neff Potassium [Moles/Vol] 4.4 mmol/L Normal 3.4-5.0 [facility] Comment on above: Performed By: #### B CHYNA, CMADM #### [facility] [address] [address] [address] Dorothea Neff Sodium [Moles/Vol] 144 mmol/L Normal 137-145 [facility] Comment on above: Performed By: #### B CHYNA, CMADM #### [facility] [address] [address] [address] Dorothea Neff Urea nitrogen [Mass/Vol] 17.0 mg/dL Normal 9.0-20.0 [facility] Comment on above: Performed By: #### B CHYNA, CMADM #### [facility] [address] [address] [address] Dorothea Neff Urea nitrogen/Creatinine [Mass ratio] 16.2 mg/mg Normal [facility] Comment on above: Performed By: #### B CHYNA, CMADM #### [facility] [address] [place] [address] Dr. Dorothea Neff URIC ACID SERUMon 01-13-2021 Urate [Mass/Vol] 7.5 mg/dL Normal 3.5-8.5 [facility] Comment on above: Performed By: #### U CULLEN #### [facility] [address] [place] [address] Dr. Dorothea Neff XR CHEST 1 Von [...] by: EMELIA WIGGINS Date: 2021-01-13 06:24 Normal [facility] Vital Signs Date Time Vital Sign Value Performing Clinician Facility 05-07-2024 09:36-0500 Body height 171.45 cm [facility] 05-07-2024 09:36-0500 Body mass index (BMI) [Ratio] 30.7 kg/m2 [facility] 05-07-2024 09:36-0500 Body weight 90.49 kg [facility] 05-07-2024 09:36-0500 Diastolic blood pressure 85 mm[Hg] [facility] 05-07-2024 09:36-0500 Heart rate 99 /min [facility] 05-07-2024 09:36-0500 Respiratory rate 12 /min [facility] 05-07-2024 09:36-0500 Systolic blood pressure 135 mm[Hg] [facility] 03-18-2024 14:58-0500 Body height 172.7 cm Riley Elpidio DO Work Phone: [facility] 03-18-2024 14:58-0500 Body mass index (BMI) [Ratio] 30.41 kg/m2 Riley Elpidio DO Work Phone: [facility] 03-18-2024 14:58-0500 Body weight 90.72 kg Riley Elpidio DO Work Phone: [facility] 03-18-2024 14:58-0500 Diastolic blood pressure 80 mm[Hg] Riley Elpidio DO Work Phone: [facility] 03-18-2024 14:58-0500 Heart rate 95 /min Riley Elpidio DO Work Phone: [facility] 03-18-2024 14:58-0500 SaO2% (BldA) [Mass fraction] 99 % Riley Elpidio DO Work Phone: [facility] 03-18-2024 14:58-0500 Systolic blood pressure 142 mm[Hg] Riley Magallanes DO Work Phone: [facility] 04-14-2023 09:00-0500 Body height 171.45 cm Micah Ball Other [employer] Other 04-14-2023 09:00-0500 Body mass index (BMI) [Ratio] 30.92 kg/m2 Micah Ball Other [employer] Other 04-14-2023 09:00-0500 Body weight 90.9 kg Micah Ball Other [employer] Other 04-14-2023 09:00-0500 Diastolic blood pressure 67 mm[Hg] Micah Ball Other [employer] Other 04-14-2023 09:00-0500 Respiratory rate 12 /min Micah Ball Other [employer] Other 04-14-2023 09:00-0500 Systolic blood pressure 135 mm[Hg] Micah Ball Other [employer] Other 10-11-2022 09:00-0400 Body height 171.45 cm Micah Ball Other [employer] Other 10-11-2022 09:00-0400 Body mass index (BMI) [Ratio] 31.04 kg/m2 Micah Ball Other [employer] Other 10-11-2022 09:00-0400 Body weight 91.26 kg Micah Ball Other [employer] Other 10-11-2022 09:00-0400 Diastolic blood pressure 87 mm[Hg] Micah Ball Other [employer] Other 10-11-2022 09:00-0400 Respiratory rate 12 /min Micah Whelan Other [employer] Other 10-11-2022 09:00-0400 Systolic blood pressure 161 mm[Hg] Micah Whelan Other [employer] Other Encounters Encounter Date Encounter Type Care Provider Facility Start: 05-07-2024 End: 05-07-2024 ambulatory [facility] Work Phone: Start: 05-07-2024 End: 05-07-2024 Patient encounter procedure [facility] Work Phone: Start: 03-18-2024 End: 03-18-2024 Office outpatient visit 15 minutes Riley Magallanes DO Work Phone: [facility] Comment on above: CANDIDA (obstructive sle ep apnea) (Primary Dx); Hypersomnia; PLMD (periodic limb movement disorder); Snoring Start: 03-18-2024 End: 03-18-2024 ambulatory RILEY ELPIDIO Not Available Start: 03-18-2024 End: 03-18-2024 Bamboo flowsheet Riley Elpidio DO Work Phone: [facility] Start: 03-18-2024 End: 03-18-2024 Bamboo flowsheet Riley Elpidio DO Work Phone: [facility] Start: 09-22-2023 End: 09-22-2023 ambulatory Emily Martin MD Facility:[facility] [place] Start: 09-01-2023 End: 09-01-2023 ambulatory Emily Martin MD Facility:[facility] [place] Start: 04-14-2023 End: 04-14-2023 ambulatory Micah Whelan Other [employer] Other Start: 04-14-2023 Office outpatient vi sit 25 minutes Micah Whelan [facility] Start: 02-20-2023 End: 02-20-2023 ambulatory Micah Whelan Other [employer] Other Start: 02-20-2023 Telephone encounter Micah Whelan [facility] Start: 01-31-2023 End: 01-31-2023 ambulatory Micah Whelan Other [employer] Other Start: 01-31-2023 Telephone encounter Micah Whelan FP [facility] Start: 10-11-2022 End: 10-11-2022 ambulatory Micah Whelan Other [employer] Other Start: 10-11-2022 Patient encounter procedure Micah Whelan [facility] Start: 06-27-2022 End: 06-27-2022 ambulatory Micah Whelan Other [employer] Other Start: 06-27-2022 Nursing evaluation o f patient and report [facility] Start: 06-10-2022 End: 06-10-2022 ambulatory Micah Whelan Other [employer] Other Start: 06-10-2022 Telephone encounter Micah Whelan [facility] Start: 03-11-2022 (FPG VCS) [facility] Start: 03-11-2022 End: 03-11-2022 ambulatory Micah Whelan Other [employer] Other Start: 03-08-2022 End: 03-08-2022 ambulatory Micah Whelan Other [employer] Other Start: 03-08-2022 Nursing evaluation o f patient and report Micah Whelan [facility] Start: 10-31-2021 End: 11-01-[address] MICAH WHELAN Facility:[facility] Start: 10-25-2021 End: 10-26-[address] MICAH WHELAN Facility:[facility] Start: 10-09-2021 End: 10-10-[address] MICAH WHELAN Facility:[facility] Start: 10-03-2021 Adult health examination Micah Whelan Other [employer] Other Start: 02-07-2021 End: 02-08-[address] MICAH WHELAN Facility:[facility] Start: 01-13-2021 End: 01-13-[address] SAHSA MCFADDEN Facility:[facility] Start: 11-28-2020 End: 11-28-2020 ambulatory SANYA MEJIA Facility:[facility] Procedures Date Procedure Procedure Detail Performing Clinician Start: 10-03-2021 Depression screening Be marjorie Whelan Other Plan of Treatment Date Care Activity Detail Author Start: 03-22-2025 End: 03-22-2025 Patient encounter procedure 03/22/2025 9:00 AM [place] [phone] Riley Magallanes DO [address] [place] [address] Start: 03-18-2024 End: 03-18-2024 Patient encounter procedure 03/18/2024 3:15 PM EST Office Visit [facility] [address] [place] [address] Riley Magallanes DO [address] [place] [address] Arrived [facility] Comment on above: Arrived Start: 11-02-2023 Influenza vaccination Influenz a Vaccine (#1) [facility] Immunizations Immunization Date Immunization Notes Care Provider Fa cility 01-02-2024 influenza virus vaccine, unspecified formulation Riley Magallanes DO Work Phone: [facility] 11-30-2021 COVID-19 Vaccine Pfi zer - Documentation Purposes Only Micah Whelan Other [facility] 11-30-2021 influenza virus vaccine, split virus (incl. purified surface antigen) Micah Whelan Other [employer] Other 11-30-2021 influenza virus vaccine, unspecified formulation [facility] 06-05-2021 COVID-19 Vaccine Pfi zer - Documentation Purposes Only Micah Whelan Other [facility] 11-28-2020 COVID-19 mRNA, Comirnaty (Pfizer) [facility] 04-14-2020 COVID-19 Vaccine Pfi zer - Documentation Purposes Only Micah Whelan Other [facility] 03-27-2020 COVID-19 mRNA, Comirnaty (Pfizer) [facility] 12-09-2019 influenza virus vaccine, split virus (incl. purified surface antigen) Micah Whelan Other [facility] [employer] Other 12-09-2019 influenza virus vaccine, unspecified formulation [facility] 12-20-2016 influenza virus vaccine, split virus (incl. purified surface antigen) Micah Whelan Other [place] [employer] Other 12-20-2016 influenza virus vaccine, unspecified formulation [facility] 12-25-2015 pneumococcal conjuga te vaccine, 13 valent Micah Whelan Other [facility] 12-19-2015 influenza virus vaccine, split virus (incl. purified surface antigen) Micah Whelan Other [facility] [employer] Other 12-19-2015 influenza virus vaccine, unspecified formulation [facility] 12-22-2013 pneumococcal polysaccharide vaccine, 23 valent Micah Whelan Other [facility] 12-02-2013 tetanus and diphther ia toxoids, adsorbed, preservative free, for adult use (5 Lf of tetanus toxoid and 2 Lf of diphtheria toxoid) Micah Whelan Other [facility] 11-05-2011 tetanus and diphther ia toxoids, adsorbed, preservative free, for adult use (5 Lf of tetanus toxoid and 2 Lf of diphtheria toxoid) Micah Whelan Other [facility] Payers Date Payer Category Payer Unknown 2011 [facility] [id number] 2007 Medicare 1959 Medicare [id number] 1959 Unknown [id number] 1959 Unknown [id number] 1942 Unknown [id number] 1942 Unknown [id number] 1942 Unknown [id number] 1942 Unknown [id number] 1942 Unknown [id number] 1942 Unknown [id number] 1942 Unknown [id number] 1942 Unknown [id number] 1942 Unknown [id number] Social History Date Type Detail Facility Start: 02-03-2023 End: 03-18-2024 Sex Assigned At [facility] [employer], 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 2-4 times a month [facility] Average Number of Drinks Not on file [facility] Start: 1940 Sex assigned at Not on file [facility] Start: 05-07-2024 Sex Male (finding) [facility] Start: 1940 Sex Assigned At Male F [facility] Clinical Notes 03-08-2022 to 03-18-2024 Riley Magallanes DO - 03/18/2024 3:15 PM EST Note Date & Type Note Facility 03-18-2024 History of Presen t illness Narrative Images from the original note were not included. Chief Complaint Patient presents with Sleep Apnea Subjective Junito Dereck Padilla, 83 y.o., male HPI He states that he is sleeping better. He is getting 7-8 hrs a night of sleep. He is wearing his machine very night. He denies issues with machine or leaking of his mask. He feels rested. He is not having any issues with the mask or the machine. Overall feeling good. He averages around 7-9 hours of sleep per night. He denies any other concerns. Past Medical History: Diagnosis Date Allergies Colon cancer (CMS/HCC) mid Hypertension (CMS/HCC) Past Surgical History: Procedure Laterality Date COLECTOMY Colon Resection - 8 in removed- Mid ELBOW FRACTURE SURGERY Left 1999 (L) Elbow FX w/ ORIF - Dr. Headley HERNIA REPAIR x3- 1979, 1999 TONSILLECTOMY Childhood Family History Problem Relation Name Age of Onset Heart attack Father Social History Tobacco Use Smoking status: Never Smokeless tobacco: Never Substance Use Topics Alcohol use: Yes Allergies: Hydrocodone-acetaminophen and Penicillin g General: No fever or chills HEENT: No nasal congestion or runny nose Pulmonary: No shortness of breath or cough Cardiovascular: No chest pain or palpitations GI: No nausea or vomiting : No dysuria or hematuria Musculoskeletal: No new aches or pains or muscle weakness Infectious: no recurrent fevers or infections Dermatologic: No rashes or skin lesions Neurologic: No new headaches or dizziness Vitals: 03/18/24 1458 BP: 142/80 Pulse: 95 SpO2: 99% Body mass index is 30.41 kg/m . weight: 200 lb Neurologic exam: General: Normal body habitus, cooperative, pleasant Mental status: Awake, alert to person, place and time. Recent and remote memory are intact. Attention and concentration are normal. Fund of knowledge is appropriate for level of education. HEENT: NC/AT Cranial nerves: CN II: Visual mujica full to confrontation. No loss of vision CN III, IV, : pupils equal round and reactive to light. Extraocular movements intact. No ptosis present. CN V: Facial sensation is normal. CN VII: Full and symmetric facial movement. CN VIII: Hearing is normal CN IX and X: Palate elevates symmetrically. CN XI: Shoulder shrug is normal bilaterally. CN XII: Tongue is midline without atrophy or fasciculation. Speech: Clear and fluent no aphasia or dysarthria Pronator drift: Negative bilateral upper extremity Coordination: Intact, no signs of dysmetria Good finger to nose and rapid alternating movements Sensory: Sensation is intact to light, temperature and vibratory touch throughout four extremities. Motor: LUE 5/5 RUE 5/5 LLE 5/5 RLE 5/5 Tone: Physiologic, no tremor, bradykinesia or rigidity DTR: Bilateral Biceps 2/4 Bilateral BR 2/4 Bilateral Patellar 2/4 No spasticity Gait: Normal to casual gait Romberg's Negative Review and summary of old records: Assessment/Plan Diagnoses and all orders for this visit: CANDIDA (obstructive sleep apnea) Hypersomnia PLMD (periodic limb movement disorder) Snoring 83-year-old male with a severe obstructive sleep apnea with an AHI of 31. This leads to daytime hypersomnolence and snoring. He also may have some underlying periodic limb movement disorder however that is not bothering him and does not feel like he is disrupting his sleep. His sleep is restorative with use of the CPAP machine. He is compliant with it and using it every night. Overall he is doing well With this. Compliance data patient is compliant he is wearing the machine 100 percent of the time with 93 percent of the time greater than 4 hours average nightly usage is 7 hours and 11 minutes and residual AHI is 2.2. Plan Compliance download was reviewed he is compliant Continue use his CPAP machine every night The patient was counseled on proper sleep hygiene and adequate hours of sleep. The patient was counseled on the risks of stroke, PR, and sudden with CANDIDA, along with the need for compliance with the CPAP/BiPAP treatment. The patient was counseled on the need for aggressive diet, exercise, and weight loss. The diagnosis was all discussed with the patient. All questions were answered and they agreed with the treatment plan. Patient will call if there are any new issues or questions. Pt has been fully educated on their diagnosis, treatment options, follow up plan, and return instructions Return to clinic: 1 year documented in this encounter [facility] 04-14-2023 Evaluation note Encounter Date Diagnosis Assessment [...] and insulin resistance. Instructed on weight loss [employer] Other 08-11-2023 Evaluation note* Encounter Date Diagnosis Assessment Notes Treatment Notes Treatment Clinical Notes Oct, Primary hypertension (ICD-10 - I10) This patient is instructed to consume a healthy, low-fat, low-salt diet. They are also encouraged to continue exercise to achieve/maintain a normal BMI. Oct, Gastro-esophageal reflux disease with esophagitis, without bleeding (ICD-10 [...] Microalbumin, Dilated eye exam and Foot exam [employer] Other 04-27-2023 Evaluation note* Encounter Date Diagnosis Assessment Notes Treatment Notes Treatment Clinical Notes Jun, Seasonal allergic rhinitis due to pollen (ICD-10 - J30.1) [employer] Other 01-09-2023 Evaluation note* Encounter Date Diagnosis Assessment Notes Treatment Notes Treatment Clinical Notes Mar, COVID-19 (ICD-10 - U07.1) Begin [...] - E78.00) Hold Atorvastatin while taking Paxlovid [employer] Other 01-06-2023 Evaluation note* Encounter Date Diagnosis Assessment Notes Treatment Notes Treatment Clinical Notes Mar, Seasonal allergies (ICD-10 - J30.2) [employer] Other Evaluation [employer]No [employer] Other Evaluation note* Diagnosis CANDIDA (obstructive sleep apnea)- Primary Obstructive sleep apnea (adult) (pediatric) Hypersomnia Hypersomnia, unspecified PLMD (periodic limb movement disorder) Periodic limb movement disorder Snoring Other dyspnea and respiratory abnormality [facility] Diagnosis Onset Date Resolution Status Admit Date Hypercholesteremia acute May 07, 2024 9:20am Hypertension acute May 07 025 9:20am IFG (impaired fasting glucose) acute May 07, 2024 9:20am Lower extremity edema acute May 9:20am Lumbar spondylosis acute May 07, 2024 9:20am CANDIDA (obstructive sleep apnea) acute May 07, 2024 9:20am Osteoporosis acute May 07 025 9:20am [facility] Work Phone: History general Narrative - Reported* Type Description Date Medical History IFG (impaired fasting glucose) Medical [...] Surgical History UMBILICAL HERNIA REPAIR Surgical History [facility] Surgical History COLONOSCOPY Surgical History B/L INGUINAL HERNIA REPAIR Hospitalization History SEE SURGICAL HX [employer] Other History general Narrative - Reported* Type Description Date Medical History IFG (impaired fasting glucose) Medical [...] Surgical History UMBILICAL HERNIA REPAIR Surgical History [facility] Surgical History COLONOSCOPY Surgical History B/L INGUINAL HERNIA REPAIR Surgical History Colonoscopy w/ polypectomy (rhys ypectomy) 2020 Hospitalization History SEE SURGICAL [employer] Other Summary Purpose Family History Relationship Condition Age at Onset Recorded Date/T ana laura mother Alzheimer's dementia Unknown Unknown sister Malignant neoplasm Unknown father Heart disease Unknown Myocardial infarction Unknown Advance Directives Advance Directive Response Recorded Date/ Time Advance Directives No January 9:49am Chief Complaint and Reason for Visit Chief Complaint Admit Date 6 month f/u May 07, 2024 9:20 am Reason for Visit Admit Date Hypercholesteremia May 07, 2024 9:20 am Hypertension May 07, 2024 9:20 am IFG (impaired fasting glucose) May 9:20am Lower extremity edema May 07, 2024 9: 20am Lumbar spondylosis May 07, 2024 9:20 am CANDIDA (obstructive sleep apnea) May 07, 2024 9:20am Osteoporosis May 07, 2024 9:20 am Additional Source Comments (unrecognized sect ion and content) No Status Records FoundNo Status Records FoundNo Status Records FoundNo Status Records Found INFORMATION SOURCE (unrecogn ized section and content) DATE CREATED AUTHOR 03/28/2021 [facility] DATE CREATED AUTHOR AUTHOR'S ORGANIZ ATION 11/01/2021 [facility] DATE CREATED AUTHOR AUTHOR'S ORGANIZ ATION 09/27/[address] [facility] DATE CREATED AUTHOR AUTHOR'S ORGANIZ ATION 03/21/2024 [facility] EPIC REASON FOR VISIT (unrecogniz ed section and content) Reason Comments Sleep Apnea Care Teams (unrecognized sec tion and content) Online Media Buyer Relationship Specialty Start Date End Date Micah Whelan MD [address] [place] [address] PCP - General Internal Medicine 02/05/23 Online Media Buyer Relationship Specialty Start Date End Date Micah Whelan MD [address] [place] [address] PCP - General Internal Medicine 02/05/23 Team Status: Active Member Role Status Dates Micah Whelan DO Primary Care Provider Active Team Status: Inactive Member Role Status Dates Micah Whelan DO Primary Care Provide r, Attending Provider Active Start: May 07, 2024 End: May 07, 2024 Goals (unrecognized section and content) Goals may be documented in a n alternate section FOR RECORDS PERTAINING TO PATIENTS WHO ARE [...] BE BASED ON THE PRIMARY CLINICAL RECORDS. [facility] [employer] [facility]. provides no warranty or guarantee of the accuracy or completeness of information in this document.
== END 2024-05-17 08:43 | disposition home or self-care (01) ==
LOC: CARD 08:43
PROVIDERS: PCP Internal Medicine; Visit Provider Internal Medicine
DX: R01.1 Cardiac murmur, unspecified (principal); I10 Essential (primary) hypertension; R60.0 Localized edema
CPT/HCPCS: 93306